=== PATIENT | female | born 1990 | race Caucasian/White ===

== ENCOUNTER 2018-09-29 12:05 | Outpatient (REF) | payer MEDICARE, MEDICAID, SELFPAY ==
--- NOTE | 2018-09-29 11:30 | PAPFT_PTH ---
PATIENT: Olena Perry LOC: [facility] U#:[id number] AGE/SX: 28/F ROOM: RE09/29/[address]: Shital Dixon NP : 1990 BED: DIS: 09/29/2018 SPEC #: [id number] RECD: 09/29/18 17:30 STATUS: [place] REParminder #: [id number] FIDE: 09/29/18 11:[address]: Shital Dixon NP DEPT: [facility] Cytology RECD BY: Kavya Ramirez ENTERED: 09/29/18 17:30 SP TYPE: PAPFT OTHR DR: Domitila Dorado MD, DC Tissues: 1 - CX/ENDOCX FOR PAP SMEARS Procedures: PAP THIN PREP/UVM Screening Comments: [id number] (CHLAMYDIA/GC)
[2018-10-01 12:55] LABS: Chlamydia Result Negative; GC Result Negative; Specimen Description SEE COMMENTS
== END 2018-09-29 12:25 ==
LOC: LBN 12:05
PROVIDERS: PCP Family Medicine; Visit Provider Nurse Practitioner Women's Health
DX: Z11.3 Encounter for screening for infections with a predominantly sexual mode of transmission (principal); Z12.4 Encounter for screening for malignant neoplasm of cervix; Z11.51 Encounter for screening for human papillomavirus (HPV)
CPT/HCPCS: 87491; 87591; 88142

== ENCOUNTER 2018-10-15 15:44 | Outpatient (REF) | payer MEDICARE, MEDICAID, SELFPAY ==
--- NOTE | 2018-10-15 15:30 | CER_PTH ---
PATIENT: Olena Perry LOC: [facility] U#:[id number] AGE/SX: 28/F ROOM: RE10/15/[address]: Gabino Ventura MD : 1990 BED: DIS: 10/15/2018 SPEC #: [id number] RECD: 10/15/18 16:55 STATUS: [place] BUCIO #: [id number] FIDE: 10/15/18 15:[address]: Gabino Ventura DEPT: Surgical Specimen RECD BY: Kavya Ramirez ENTERED: 10/15/18 16:56 SP TYPE: CER OTHR DR: Domitila Dorado MD, DC Tissues: 1 - CERVICAL BIOPSY 2 - CERVICAL BIOPSY 3 - ENDOCERVICAL BX/CURRETTE Procedures: GROSS AND MICRO LEVEL 4 Comments: [id number]
== END 2018-10-15 16:04 ==
LOC: LBN 15:44
PROVIDERS: PCP Family Medicine; Visit Provider Obstetrics & Gynecology
DX: N87.0 Mild cervical dysplasia (principal); Z87.410 Personal history of cervical dysplasia
CPT/HCPCS: 88305

== ENCOUNTER 2018-12-03 13:30 | Outpatient (REF) | payer MEDICARE, MEDICAID, SELFPAY | END 2018-12-03 13:50 | LOC: LBN 13:30 | PROVIDERS: PCP Nurse Practitioner Family; Visit Provider Nurse Practitioner Family | DX: J02.9 Acute pharyngitis, unspecified (principal) | CPT/HCPCS: 87070 ==

== ENCOUNTER 2018-12-18 16:30 | Emergency (ER) | payer MEDICARE, MEDICAID, SELFPAY ==
--- NOTE | 2018-12-18 16:35 | DI.RAD_ITS ---
SYMPTOM/DIAGNOSIS: DISTAL PARTIAL AMPUTATION RIGHT MIDDLE FINGER: Three views. No acute fracture or dislocation is seen. No radiopaque foreign bodies are seen in the soft tissues. There is soft tissue swelling seen of the right middle finger. IMPRESSION: No acute fracture or dislocation.
--- NOTE | 2018-12-18 16:36 | W.ED.GENAD ---
Discharge Plan Disposition Patient Disposition: HOME Condition: Improving Discharge Details Chief Complaint: Orthopedic Clinical Impression: Laceration of right middle finger Primary Care Provider: Isabel Carrillo ED Provider: Xu Sanders Home Meds and New Rx's Prescriptions: New cephalexin 500 mg capsule 500 mg PO TID 5 Days Qty: 15 RF: 0 Continued triamcinolone acetonide 0.1 % cream 1 applic TP BID Qty: 80 RF: 0 benzonatate 100 mg capsule 100 - 200 mg PO TID PRN (Reason: cough) Qty: 60 RF: 0 Nexplanon 68 MG implant 68 mg SQ ONCE Qty: 1 RF: 0 ibuprofen 800 MG tablet 800 mg PO BID MDD 2 PRNQty: 60 RF: 0 amoxicillin 500 mg capsule 2,000 mg PO ONCE Qty: 4 RF: 0 Discharge Instructions Instructions: Finger Laceration (ED) Additional Instructions: We will refer you to orthopedics for follow-up. Please call the office at [phone] for an appointment time. Leave the splint in place until seen by orthopedics. As discussed, you were unable to proceed with suture repair and the wound was closed with Steri-Strips and will heal by secondary intention. Take antibiotics as prescribed. Return for a fever, increasing discomfort, or any other acute concern. Elevate the hand above level of the heart to reduce pain and swelling. Please alternate Tylenol 650 to 975 mg every 6 hours with ibuprofen 800 mg every 8-12 hours as needed for pain Medical Decision Making 28-year-old female presents with right distal long finger partial amputation from a house door which entrapped the finger. It is distal to the proximal nailbed and is from the dorsal side. The volar pad of the finger is intact and the patient does states she can feel to points discriminated at 1 cm. 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 Referred for Xray that does not reveal acute bony injury. Anesthetized with digital block with Marcaine. Quite anxious and given half dose anxiolytic. After irrigation, patient with numb finger. Separately unable to tolerate suture repair due to anxiety, refused additional anesthetic. Discussed with her that we will allow the wound to heal by secondary intention. Steri-Strips were placed and held with glue. Covered in Xeroform, splinted. She may follow-up with orthopedics. Given her cardiac malformation with repair I will place her on 5 days of Keflex. She understands return and follow-up precautions HPI General Mode of arrival: EMS. Date/Time Provider Initiated Documentation: 12/18/18 16:45. Limitations to Documentation: no limitations. Information obtained by: patient. History of Present Illness 28 year old F presents to the emergency department with the chief complaint of Right long finger partial distal amputation. Tetanus 2012., described as moderate, Quality is described as constant, and is localized to the right and upper extremity. Patient reports no radiation. Patient started experiencing this minute(s) and it has been constant. No relieving factors improve symptom(s), No exacerbating factors reported . Patient notes no other symptoms.. Patient did receive the following treatments prior to arrival, splint Related Data Home Medications Medication Instructions Recorded Confirmed Nexplanon 68 mg SQ ONCE #1 implant 11/04/16 12/18/18 ibuprofen 800 mg PO BID PRN #60 tab-cap MDD 2 01/14/18 12/18/18 amoxicillin 500 mg capsule 2,000 mg PO ONCE #4 cap 03/25/18 12/18/18 triamcinolone acetonide 0.1 % 1 applic TP BID #80 gm 06/11/18 12/18/18 topical cream benzonatate 100 mg capsule 100 - 200 mg PO TID PRN #60 cap 12/03/18 12/18/18 cephalexin 500 mg PO TID 5 Days #15 cap 12/18/18 Previous Rx's Medication Instructions Recorded amoxicillin 500 mg capsule 2,000 mg PO ONCE #4 cap 03/25/18 triamcinolone acetonide 0.1 % 1 applic TP BID #80 gm 06/11/18 topical cream benzonatate 100 mg capsule 100 - 200 mg PO TID PRN #60 cap 12/03/18 cephalexin 500 mg PO TID 5 Days #15 cap 12/18/18 Allergies Allergy/AdvReac Type Severity Reaction Status Date / Time No Known Allergies Allergy Verified 12/03/18 09:59 Review of Systems Review of Systems No other injury. [facility] Medical History Abnormal Pap smear of cervix (11/18/16) BV (bacterial vaginosis) Surgical History OPEN HEART SURGERY Family History Mother Bipolar disorder Depression Asthma Father Human immunodeficiency virus (HIV) positive Grandmother Neoplasm Sister No problems noted. Brother No problems noted. Social History Smoking/Tobacco Use Status: Never Alcohol Intake: current Alcohol type: beer Drug use: Never Substance use type: marijuana Details: pt states that she drank three beers today Seatbelt use: sometimes Do you feel safe at home: Yes Female Reproductive History Menstrual control method: implanted Exam Narrative Exam Narrative: GEN: awake, alert, oriented 3. Pleasant, well groomed, interactive. HEAD: Normocephalic, atraumatic ENT: Mucous membranes moist, oropharynx unremarkable, External ear exam unremarkable EYES: PERRL, EOMI NECK: Full ROM, no PIEDAD, no menigismus EXT: Right long finger with distal partial amputation on the dorsal surface with volar pad intact. Patient states she is able to feel two-point discrimination at approximately 1 cm. The proximal nailbed is intact Neuro: Grossly normal neurologic exam, conversant, interactive. Psych: Speech fluent, thoughts congruent, affect anxious
[2018-12-18 16:39] VITALS: BP 124/96; PULSE 111; RESP 18; TEMP 37.4; O2SAT 98
[2018-12-18] MEDS: Ibuprofen 800 MG TAB PO (17:10)
[2018-12-18] MEDS: Cephalexin 500 MG CAP PO (17:10)
--- NOTE | 2018-12-18 17:11 | DI.VRAD_ITS ---
EXAM: XR Right Finger(s) EXAM DATE/TIME: 12/18/2018 4:36 PM CLINICAL HISTORY: 28 years old, female; Other: Distal partial amputation TECHNIQUE: Imaging protocol: XR Right fingers. Views: Minimum 2 views. COMPARISON: CR RIGHT HAND COMPLETE 06/21/2017 4:21 AM FINDINGS: Normal anatomic alignment and bone density. No acute displaced fracture or dislocation. Significant soft tissue swelling about the tip of the middle finger. IMPRESSION: No acute skeletal injury. Dictated and Authenticated by: Ramone Mayes MD. Ordering:OPAL Mcnair MD
[2018-12-18] MEDS: LORazepam 0.5 MG TAB PO (17:25)
[2018-12-18 18:35] VITALS: BP 124/96; PULSE 88; RESP 18; TEMP 37.4; O2SAT 98
--- NOTE | 2018-12-18 19:03 | NUR.NOTE ---
Nursing Note: site bandaged by provider and splinted by provider additional Coban placed by RN application reviewed by provider
== END 2018-12-18 18:33 | disposition home or self-care (01) ==
PROVIDERS: Emergency Provider Emergency Medicine; PCP Nurse Practitioner Family
DX: S68.622A Partial traumatic transphalangeal amputation of right middle finger, initial encounter (principal); W23.0XXA Caught, crushed, jammed, or pinched between moving objects, initial encounter; S67.192A Crushing injury of right middle finger, initial encounter
CPT/HCPCS: 29130; 99283; 73140

== ENCOUNTER → 2018-12-22 09:36 | Outpatient (BNVA) | payer MEDICARE, MEDICAID, SELFPAY | PROVIDERS: PCP Nurse Practitioner Family; Referring Provider Nurse Practitioner Family; Visit Provider Orthopaedic Surgery | DX: S69.91XA Unspecified injury of right wrist, hand and finger(s), initial encounter (principal); W23.0XXA Caught, crushed, jammed, or pinched between moving objects, initial encounter | CPT/HCPCS: 99213 ==

== ENCOUNTER → 2018-12-30 09:54 | Outpatient (BNVA) | payer MEDICARE, MEDICAID, SELFPAY | PROVIDERS: PCP Nurse Practitioner Family; Referring Provider Nurse Practitioner Family; Visit Provider Orthopaedic Surgery | DX: S67.192A Crushing injury of right middle finger, initial encounter (principal); S69.81XA Other specified injuries of right wrist, hand and finger(s), initial encounter; X58.XXXA Exposure to other specified factors, initial encounter | CPT/HCPCS: 99213 ==

== ENCOUNTER 2019-04-25 19:16 | Outpatient (REF) | payer MEDICARE, MEDICAID, SELFPAY ==
[2019-04-27 13:09] LABS: HSV 1 DNA Result Negative (Negative)
[2019-04-27 15:56] LABS: HSV 2 DNA Result Positive (Negative); Varicella Zoster DNA Result Negative (Negative)
== END 2019-04-25 19:36 ==
LOC: LBN 19:16
PROVIDERS: PCP Family Medicine; Visit Provider Internal Medicine
DX: R21 Rash and other nonspecific skin eruption (principal)
CPT/HCPCS: 87252; 87529; 87798; 87070; 87205

== ENCOUNTER 2019-07-29 15:21 | Outpatient (REF) | payer MEDICARE, MEDICAID, SELFPAY ==
--- NOTE | 2019-07-29 11:30 | PAPFT_PTH ---
PATIENT: Olena Perry LOC: [facility] U#:[id number] AGE/SX: 29/F ROOM: RE07/29/[address]: Gabino Ventura MD : 1990 BED: DIS: 07/29/2019 SPEC #: [id number] RECD: 07/29/19 17:52 STATUS: [place] REParminder #: [id number] FIDE: 07/29/19 11:[address]: Gabino Ventura DEPT: [facility] Cytology RECD BY: Kavya Ramirez ENTERED: 07/29/19 17:52 SP TYPE: PAPFT OTHR DR: Domitila Dorado MD, DC Tissues: 1 - CX/ENDOCX FOR PAP SMEARS Procedures: PAP THIN PREP/[facility] Screening Comments: [id number] (CHLAMYDIA/GC)
[2019-08-01 15:48] LABS: GC Result Negative (Negative)
[2019-08-03 10:01] LABS: Chlamydia Result Positive (Negative)
== END 2019-07-29 15:41 ==
LOC: LBN 15:21
PROVIDERS: PCP Family Medicine; Visit Provider Obstetrics & Gynecology
DX: N89.8 Other specified noninflammatory disorders of vagina (principal); Z11.3 Encounter for screening for infections with a predominantly sexual mode of transmission; Z12.4 Encounter for screening for malignant neoplasm of cervix; Z11.51 Encounter for screening for human papillomavirus (HPV)
CPT/HCPCS: 87491; 87591; 88142; 87480; 87510; 87660

== ENCOUNTER 2019-08-04 02:35 | Outpatient (CLI) | payer MEDICARE, MEDICAID, SELFPAY ==
[2019-08-04 15:54] LABS: Calculated LDL 49 mg/dL (<100); Cholesterol 132 mg/dL (<200); HDL Cholesterol 52 mg/dL (40-60); Triglyceride 158 mg/dL (<150)
[2019-08-05 11:33] LABS: HIV-1/2 Ag & Ab Screen Negative (Negative)
[2019-08-05 14:02] LABS: Syphilis Serology (RPR) Negative (Negative)
[2019-08-05 15:46] LABS: Chlamydia Result Positive (Negative)
[2019-08-08 10:00] LABS: GC Result Negative (Negative)
== END 2019-08-04 02:55 ==
PROVIDERS: PCP Family Medicine; Visit Provider Family Medicine
DX: Z13.6 Encounter for screening for cardiovascular disorders (principal); Z11.3 Encounter for screening for infections with a predominantly sexual mode of transmission
CPT/HCPCS: 36415; 80061; 87389; 87491; 87591; 86592

== ENCOUNTER 2019-08-26 12:42 | Outpatient (REF) | payer MEDICARE, MEDICAID, SELFPAY ==
[2019-08-29 12:48] LABS: GC Result Negative (Negative)
[2019-08-29 13:30] LABS: Chlamydia Result Positive (Negative)
== END 2019-08-26 13:02 ==
LOC: LBN 12:42
PROVIDERS: PCP Family Medicine; Visit Provider Nurse Practitioner Family
DX: Z11.3 Encounter for screening for infections with a predominantly sexual mode of transmission (principal)
CPT/HCPCS: 87491; 87591

== ENCOUNTER 2019-10-10 19:18 | Outpatient (REF) | payer MEDICARE, MEDICAID, SELFPAY ==
[2019-10-12 14:26] LABS: Chlamydia Result Negative (Negative); GC Result Negative (Negative)
== END 2019-10-10 19:38 ==
LOC: LBN 19:18
PROVIDERS: PCP Family Medicine; Visit Provider Nurse Practitioner Family
DX: Z11.3 Encounter for screening for infections with a predominantly sexual mode of transmission (principal)
CPT/HCPCS: 87491; 87591

== ENCOUNTER 2019-11-10 17:37 | Outpatient (REF) | payer MEDICARE, MEDICAID, SELFPAY ==
[2019-11-11 14:08] LABS: HSV 1 DNA Result Negative (Negative); HSV 2 DNA Result Positive (Negative)
== END 2019-11-10 17:57 ==
LOC: LBN 17:37
PROVIDERS: PCP Family Medicine; Visit Provider Obstetrics & Gynecology
DX: Z11.59 Encounter for screening for other viral diseases (principal); N90.89 Other specified noninflammatory disorders of vulva and perineum
CPT/HCPCS: 87529

== ENCOUNTER 2019-12-04 09:34 | Emergency (ER) | payer MEDICARE, MEDICAID, SELFPAY ==
[2019-12-04] VITALS (44 sets, daily range): BP systolic 95–155; BP diastolic 53–97; PULSE 58–112; RESP 12–25; TEMP 36.9–37.2; O2SAT 95–100
--- NOTE | 2019-12-04 09:28 | ED.GENADUL_ITS ---
Discharge Plan Disposition Patient Disposition: HOME Condition: Stable Discharge Details Chief Complaint: Seizure Clinical Impression: Seizure, Accidental medication overdose Primary Care Provider: Domitila Dorado ED Provider: Becca Talavera Home Meds and New Rx's Prescriptions: New levetiracetam [Keppra] 500 mg tablet 500 mg PO BID Qty: 14 RF: 0 levetiracetam [Keppra] 750 mg tablet 750 mg PO BID Qty: 60 RF: 0 Continued Nexplanon 68 mg implant 1 implant SBD ONCE RF: 0 ibuprofen 600 mg tablet 600 mg PO BID MDD 2 PRN (Reason: fever or pain) Qty: 30 RF: 0 Discharge Instructions Instructions: Recurrent Seizures in Adults (ED) Additional Instructions: Drink plenty of fluids and get plenty of rest. Do not take any additional Tessalon Perles today. Avoid any additional [id number] medications, marijuana or alcohol until f ollow-up with neurology. Start Keppra at 500 mg twice daily for 1 week then start taking Keppra 750 mg twice daily. You should receive a call from [facility] neurology clinic regarding follow-up. If you do not hear from them by next week, call the neurology clinic at [facility] at [phone]. 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 History of reported infantile spasms at 8 months of age. She states she took 1 dose of a cough medication this morning. Per discussion with [facility] pharmacy, patient was prescribed Tessalon Perles 1 year ago but no other cough medication. Review of Tessalon Perles does not note an adverse reaction of seizures. Heart rate 110s, blood pressure mildly hypertensive, patient is awake and alert and appears nontoxic. She has a left-sided tongue contusion but no other evidence of trauma or focal deficits. EKG notes a rate of 98, sinus, incomplete right bundle branch block but no acute ST ischemic changes. 1045 -- d/w [facility] neurology -it is possible the patient could be developing epilepsy as a of infantile spasms is a risk for epilepsy in adulthood. Agrees with dose of 1 g of Keppra here and to start Keppra p.o., 500 mg twice daily for 1 week then 750 twice daily. Of [facility] cardiology considering patient's extensive cardiac history -does not feel that her history of cardiac surgery or seizures have any relation to each other or vice versa at this time. No other acute recommendations. Labs and imaging reviewed. White blood cell count 21, which I suspect is a stress response. Troponin negative. Urinalysis appears contaminated. UDS notes THC. CT head and chest x-ray negative. 1230 --patient reassessed -she is now states she thinks that she accidentally took half a bottle of Tessalon Perles are not 1 tab. When questioned specifically on this, she states she thinks approximately 6 tabs. She states she felt a little sleepy this morning when she did this, and this was done accidentally and not purposely an attempt to harm herself. Discussed with poison control -patient took approximately 600 mg or even possibly up to 1000, no significant acute side effects other than GI. In large overdoses, there is concern for arrhythmia or hypotension, but not in the case of patient smaller ingestion. Recommends me 4 to 6-hour observation period from time of ingestion. This was again discussed with [facility] neurology and cardiology and they had no other additional recommendations. 1400 --[facility] evaluated patient at bedside through [facility]. Appears that the ingestion of Tessalon Perles was accidental and does not feel that there was any intent to harm herself. Mehrdad from [facility] will follow up with patient's rn case manager hospice. 1430 -- pt asymptomatic and requesting to go home. She states she feels much better. She was able to ambulate and eat here. Advised to follow up with the primary care doctor for re-evaluation. Usual and customary return precautions given prior to discharge. Medical Records Medical records reviewed: Yes I reviewed the patient's medical records. Imaging Data Radiologic Study: Radiologist's impression: CT HEAD WO CLINICAL HISTORY: hit L side of head, s/p seizure. TECHNIQUE: Imaging Protocol: Axial computed tomography images with coronal and sagittal reformatted images were created and reviewed COMPARISON: No exams were available for comparison FINDINGS: The ventricular system is normal in appearance. No evidence of acute intracranial hemorrhage, mass effect, or midline shift. The orbital structures are unremarkable. The temporal bone structures appear intact. Calvarium: Normal. Visualized Paranasal sinuses/Mastoids: Clear. IMPRESSION: Normal cranial CT. XR CHEST 2V PA LATERAL CLINICAL HISTORY: s/p seizure, r/o acute disease TECHNIQUE: COMPARISON: CR CHEST 2 VIEWS PA,LAT from 05/28/2016 FINDINGS: The heart is enlarged. Prior cardiac surgery noted. Prominence of central pulmonary vessels noted, unchanged from chest film of May 2016. The lungs are clear. No pleural effusion seen. IMPRESSION: No evidence of acute process. Lab Data Lab results reviewed: Yes I reviewed the patient's lab results. Labs: Laboratory Tests Range/Units 12/04/19 12/04/19 12/04/19 09:44 09:44 09:44 WBC (4.4-10.8) k/cumm 21.24 H RBC (4.00-5.20) m/cumm 4.82 Hgb (12.0-15.5) g/dL 14.6 Hct (36.0-46.0) % 43.4 MCV (80-95) fL 90.0 MCH (27.0-33.0) pg 30.3 MCHC (32.0-36.0) g/dL 33.6 RDW (11.7-14.6) % 13.2 Plt Count (130-400) x1000/uL 300 MPV (8.0-11.0) fL 10.2 Immature Gran % % 0.3 Neutrophils % 83.7 Lymphocytes % 6.5 Monocytes % 8.8 Eosinophils % 0.5 Basophils % 0.2 Absolute Neutrophils (1.2-6.7) k/cumm 17.78 H Absolute Lymphocytes (1.2-3.4) k/cumm 1.38 Absolute Monocytes (0.11-0.7) k/cumm 1.87 H Absolute Eosinophils (0.0-0.7) k/cumm 0.11 Absolute Basophils (0.0-0.2) k/cumm 0.04 Differential Comment Agrees w/ instrument RBC Morphology Normal PT (9.3-11.0) sec INR (0.9-1.1) APTT (21.0-31.4) sec Sodium (136-145) mmol/L 139 Potassium (3.5-5.1) mmol/L 3.8 Chloride (98-107) mmol/L 104 Carbon Dioxide (21.0-32.0) mmol/L 23.7 Anion Gap (3-11) mmol/L 11.3 H BUN (7-18) mg/dL 13 Creatinine (0.55-1.02) mg/dL 1.03 H Estimated GFR/1.73 m2 (mL/min/1.73m2) >= 60.00 Glucose (74-106) mg/dL 97 Lactate (0.6-1.4) mmol/L Calcium (8.5-10.1) mg/dL 8.9 Magnesium (1.8-2.4) mg/dL 1.8 Total Bilirubin (0.2-1.0) mg/dL 1.7 H AST (15-37) U/L 20 ALT (14-59) U/L 22 Alkaline Phosphatase (46-116) U/L 88 Troponin I (<0.06) ng/mL < 0.05 Total Protein (6.4-8.2) g/dL 7.7 Albumin (3.4-5.0) g/dL 4.0 Urine Color (Yellow) Urine Clarity (Clear) Urine pH (5-8) Ur Specific [place] (1.005-1.025) Urine Protein (Negative) mg/dL Urine Ketones (Negative) mg/dL Urine Blood (Negative) Urine Nitrite (Negative) Urine Bilirubin (Negative) Urine Urobilinogen (Up TO 0.2) EU/dL Ur Leukocyte Esterase (Negative) Urine RBC (0-2) HPF Urine WBC (0-5) HPF Ur Epithelial Cells (Negative) HPF Urine Crystals (Negative) HPF Urine Bacteria (Negative) HPF Urine Casts (Negative) LPF Urine Mucus (Negative) Urine Other (Negative) Ur Culture Indicated? Urine Glucose (Negative) mg/dL Salicylates (2.8-20.0) mg/dL < 2.8 Urine Opiates Screen (Negative) Urine Methadone Screen (Negative) Acetaminophen (10-30) ug/mL < 2 Ur Barbiturates Screen (Negative) Ur Tricyclics Screen (Negative) Ur Amphetamines Screen (Negative) U Benzodiazepines Scrn (Negative) Urine Cocaine Screen (Negative) Ur THC Screen (Negative) Ethyl Alcohol (<3) mg/dL < 3.0 Range/Units 12/04/19 12/04/19 12/04/19 09:44 10:05 10:05 WBC (4.4-10.8) k/cumm RBC (4.00-5.20) m/cumm Hgb (12.0-15.5) g/dL Hct (36.0-46.0) % MCV (80-95) fL MCH (27.0-33.0) pg MCHC (32.0-36.0) g/dL RDW (11.7-14.6) % Plt Count (130-400) x1000/uL MPV (8.0-11.0) fL Immature Gran % % Neutrophils % Lymphocytes % Monocytes % Eosinophils % Basophils % Absolute Neutrophils (1.2-6.7) k/cumm Absolute Lymphocytes (1.2-3.4) k/cumm Absolute Monocytes (0.11-0.7) k/cumm Absolute Eosinophils (0.0-0.7) k/cumm Absolute Basophils (0.0-0.2) k/cumm Differential Comment RBC Morphology PT (9.3-11.0) sec 11.2 H INR (0.9-1.1) 1.1 APTT (21.0-31.4) sec 24.3 Sodium (136-145) mmol/L Potassium (3.5-5.1) mmol/L Chloride (98-107) mmol/L Carbon Dioxide (21.0-32.0) mmol/L Anion Gap (3-11) mmol/L BUN (7-18) mg/dL Creatinine (0.55-1.02) mg/dL Estimated GFR/1.73 m2 (mL/min/1.73m2) Glucose (74-106) mg/dL Lactate (0.6-1.4) mmol/L Calcium (8.5-10.1) mg/dL Magnesium (1.8-2.4) mg/dL Total Bilirubin (0.2-1.0) mg/dL AST (15-37) U/L ALT (14-59) U/L Alkaline Phosphatase (46-116) U/L Troponin I (<0.06) ng/mL Total Protein (6.4-8.2) g/dL Albumin (3.4-5.0) g/dL Urine Color (Yellow) Yellow Urine Clarity (Clear) Clear Urine pH (5-8) 5.5 Ur Specific [place] (1.005-1.025) >= 1.030 H Urine Protein (Negative) mg/dL 100 H Urine Ketones (Negative) mg/dL Negative Urine Blood (Negative) Negative Urine Nitrite (Negative) Negative Urine Bilirubin (Negative) Negative Urine Urobilinogen (Up TO 0.2) EU/dL 0.2 Ur Leukocyte Esterase (Negative) Trace H Urine RBC (0-2) HPF 3-5 H Urine WBC (0-5) HPF 5-10 Ur Epithelial Cells (Negative) HPF Moderate Urine Crystals (Negative) HPF Negative Urine Bacteria (Negative) HPF Many Urine Casts (Negative) LPF Negative Urine Mucus (Negative) Moderate Urine Other (Negative) Negative Ur Culture Indicated? No/sq. contamination Urine Glucose (Negative) mg/dL Negative Salicylates (2.8-20.0) mg/dL Urine Opiates Screen (Negative) Negative Urine Methadone Screen (Negative) Negative Acetaminophen (10-30) ug/mL Ur Barbiturates Screen (Negative) Negative Ur Tricyclics Screen (Negative) Negative Ur Amphetamines Screen (Negative) Negative U Benzodiazepines Scrn (Negative) Negative Urine Cocaine Screen (Negative) Negative Ur THC Screen (Negative) Positive A Ethyl Alcohol (<3) mg/dL Range/Units 12/04/19 11:05 WBC (4.4-10.8) k/cumm RBC (4.00-5.20) m/cumm Hgb (12.0-15.5) g/dL Hct (36.0-46.0) % MCV (80-95) fL MCH (27.0-33.0) pg MCHC (32.0-36.0) g/dL RDW (11.7-14.6) % Plt Count (130-400) x1000/uL MPV (8.0-11.0) fL Immature Gran % % Neutrophils % Lymphocytes % Monocytes % Eosinophils % Basophils % Absolute Neutrophils (1.2-6.7) k/cumm Absolute Lymphocytes (1.2-3.4) k/cumm Absolute Monocytes (0.11-0.7) k/cumm Absolute Eosinophils (0.0-0.7) k/cumm Absolute Basophils (0.0-0.2) k/cumm Differential Comment RBC Morphology PT (9.3-11.0) sec INR (0.9-1.1) APTT (21.0-31.4) sec Sodium (136-145) mmol/L Potassium (3.5-5.1) mmol/L Chloride (98-107) mmol/L Carbon Dioxide (21.0-32.0) mmol/L Anion Gap (3-11) mmol/L BUN (7-18) mg/dL Creatinine (0.55-1.02) mg/dL Estimated GFR/1.73 m2 (mL/min/1.73m2) Glucose (74-106) mg/dL Lactate (0.6-1.4) mmol/L 1.1 Calcium (8.5-10.1) mg/dL Magnesium (1.8-2.4) mg/dL Total Bilirubin (0.2-1.0) mg/dL AST (15-37) U/L ALT (14-59) U/L Alkaline Phosphatase (46-116) U/L Troponin I (<0.06) ng/mL Total Protein (6.4-8.2) g/dL Albumin (3.4-5.0) g/dL Urine Color (Yellow) Urine Clarity (Clear) Urine pH (5-8) Ur Specific [place] (1.005-1.025) Urine Protein (Negative) mg/dL Urine Ketones (Negative) mg/dL Urine Blood (Negative) Urine Nitrite (Negative) Urine Bilirubin (Negative) Urine Urobilinogen (Up TO 0.2) EU/dL Ur Leukocyte Esterase (Negative) Urine RBC (0-2) HPF Urine WBC (0-5) HPF Ur Epithelial Cells (Negative) HPF Urine Crystals (Negative) HPF Urine Bacteria (Negative) HPF Urine Casts (Negative) LPF Urine Mucus (Negative) Urine Other (Negative) Ur Culture Indicated? Urine Glucose (Negative) mg/dL Salicylates (2.8-20.0) mg/dL Urine Opiates Screen (Negative) Urine Methadone Screen (Negative) Acetaminophen (10-30) ug/mL Ur Barbiturates Screen (Negative) Ur Tricyclics Screen (Negative) Ur Amphetamines Screen (Negative) U Benzodiazepines Scrn (Negative) Urine Cocaine Screen (Negative) Ur THC Screen (Negative) Ethyl Alcohol (<3) mg/dL ECG Data Attestation: I personally reviewed and interpreted this ECG (s) as follows: Interpretation: rate of 98, sinus, no acute ST elevation or depression, VA 166, QRS 116, QTc 447. HPI General Mode of arrival: ambulatory . Date/Time Provider Initiated Documentation: 12/04/19 09:43 . Limitations to Documentation: no limitations . Information obtained by: patient . HPI Narrative: Patient is a 29-year-old female with a history of tetralogy of fallot, with history of trans-annular patch surgical repair 3 months as well as pulmonary regurgitation with history of bioprosthetic pulmonary valve in 2016 presents status post seizure. Patient states she had been feeling well until the seizure today. She does not recall the seizure. She last remembers getting up from the floor and walking to the bathroom and vomiting 4 times which she states was mainly food. She does admit to headache. She also admits to a mild cough which is nonproductive recently for which she took 1 dose of Tessalon Perles today. She states she has taken this a few times previously in the past. She denies an recent fever, dizziness, chest pain, shortness of breath, abdominal pain, urinary symptoms, diarrhea, recent injury. She states she has been sleeping and eating well. She denies any recent alcohol or drug use. Case discussed with the boyfriend over the phone who witnessed seizure. He states that patient was sitting in a chair today when he noticed her shaking and he laid her to the ground on her side. He states she had full body jerking which lasts approximately 2 minutes. He states she was able to get up and walk to the bathroom after the seizure. He also states that she complained to him that she did not feel right yesterday. He also states that she smoked marijuana yesterday. Denies any other alcohol or drug use. He states she appeared to be acting normally today prior to seizure. Also discussed with mom over the phone and she states that patient has a history of infantile spasms at 8 months of age for which she initiated injectable medications for 18 months but no seizure medication or history of seizures since then. Related Data Home Medications Medication Instructions Recorded Confirmed ibuprofen 600 mg tablet 600 mg PO BID PRN #30 tab-cap MDD 2 10/10/19 12/04/19 etonogestrel 68 mg subdermal 1 implant SBD ONCE 11/10/19 12/04/19 implant levetiracetam [Keppra] 500 mg PO BID #14 tab 12/04/19 levetiracetam [Keppra] 750 mg PO BID #60 tab 12/04/19 Previous Rx's Medication Instructions Recorded ibuprofen 600 mg tablet 600 mg PO BID PRN #30 tab-cap MDD 2 10/10/19 levetiracetam [Keppra] 500 mg PO BID #14 tab 12/04/19 levetiracetam [Keppra] 750 mg PO BID #60 tab 12/04/19 Allergies Allergy/AdvReac Type Severity Reaction Status Date / Time No Known Allergies Allergy Verified 12/04/19 09:41 General BULMARO: 3 Review of Systems All systems reviewed & are unremarkable except as noted in HPI and below Constitutional Constitutional: Reports as per HPI, Denies chills and Denies fever(s) Eyes Eyes: Denies blurry vision ENT Ears, Nose, Mouth, and Throat: Denies dizziness, Denies sore throat and Denies throat swelling Cardiovascular Cardiovascular: Denies chest pain and Denies dyspnea Respiratory Respiratory: Denies cough and Denies dyspnea Gastrointestinal Gastrointestinal: Denies abdominal pain, Denies diarrhea and Denies vomiting Genitourinary Genitourinary: Denies hematuria and Denies dysuria Musculoskeletal Musculoskeletal: Denies back pain and Denies numbness Integumentary/Breasts Skin/Breast: Denies lesions and Denies rash Neurologic Neurologic: Denies dizziness, Denies localized weakness, Denies numbness and Reports seizure-like activity Allergic/Immunologic Allergic/Immunologic: Denies throat swelling [facility] Social History (Updated 07/25/19 @ 11:10 by Richard Marquez) Smoking/Tobacco Use Status: Never Alcohol Intake: current Alcohol Intake frequency: holidays/special occasions only Drug use: Never Caregiver/Support person: No Household members: none Housing: apartment Communication Needs: None Pets and animals: No Sexually active: Yes Do you think of yourself as: straight/heterosexual Current gender identity: female What is your relationship status?: never How often do you talk on the phone with friends or family?: three or more times per week How often do you get together with friends or relatives?: three or more times per week How often do you attend protestant or scientologist services?: 4 or more times per year Do you belong to any clubs or organized social groups?: no Panel score (0-1 are the most socially isolated patients): 2 What type of physical activity do you participate in: walking Duration: 15-30 minutes/day Frequency: 3-4 times per week Meseret/Temple: [employer] meseret needs: No Seatbelt use: sometimes Helmet use: No Drive intox or ride w/intox dinkey driver: No Do you feel safe at home: Yes Do you feel safe in your relationship?: Yes Female Reproductive History Menstrual control method: implanted Exam Const General: cooperative, healthy appearing and no acute distress HENMT Head: normal to inspection, no palpable skull fracture, normocephalic and atraumatic Ears: hearing grossly normal bilaterally and external ears normal Face and sinus: normal facial exam Mouth: oral mucosae normal Eyes General: appearance normal, both eyes and all related structures Pupils: PERRL EOM: EOM intact bilaterally Neck Neck: normal visual inspection and No submandibular swelling Lymphatic: no lymphadenopathy noted Chest Chest: normal inspection of the chest and no tenderness Resp Effort & Inspection: normal respiratory effort and able to speak in complete sentences Auscultation: clear to auscultation bilaterally Cardio Rate: regular rate Rhythm: regular rhythm GI Inspection: normal to inspection Palpation: soft, not firm, not rigid and nontender Auscultation: normal bowel sounds Back/Spine/Pelvis Cervical Spine: No cervical spinal tenderness Thoracic/Lumbar Spine: thoracic and lumbar spine normal to inspection, No thoracic spinal tenderness and No lumbar spinal tenderness Pelvis: no pain with anterior-posterior compression Skin General skin exam: no rashes or lesions noted Neuro General: patient alert, patient awake and patient oriented x3 Cranial Nerves: CN's II-XI intact bilaterally Cognition: normal cognition Speech: speech normal Motor: muscle tone normal throughout and strength 5/5 throughout Sensory Exam: no sensory deficits noted Extrem General: normal to inspection, full ROM, capillary refill normal, no calf tenderness bilaterally and no edema Other: no evidence of trauma Psych Appearance: grossly normal Mental Status: mental status grossly normal Speech and Movement: speech and movement normal Affect: normal affect
--- NOTE | 2019-12-04 09:30 | RT.EKG_ITS ---
APPROVED REPORT Exam: Resting ECG Patient Location: E HR:98 bpm ECG Measurements Heart Rate 98 AXIS OH 166 P 37 QRSd 116 QRS 115 QT 350 T -3 QTc 447 <Conclusion> Sinus rhythm...normal P axis, V-rate 60- 99 Incomplete right bundle branch block...QRSd >112, terminal axis(90,270) Borderline ST elevation, lateral leads...ST >0.06mV, I aVL V5 V6. ED interpretation: Does not appear c/w ST elevation. No evidence of ST depression.
[2019-12-04 09:53] LABS: Abs Immature Grans 0.06 k/cumm (0.0-0.09); Absolute Basophil Count 0.04 k/cumm (0.0-0.2); Absolute Eosinophil Count 0.11 k/cumm (0.0-0.7); Absolute Lymphocyte Count 1.38 k/cumm (1.2-3.4); Basophils % 0.2; Eosinophils % 0.5; HCT 43.4 % (36.0-46.0); HGB 14.6 g/dL (12.0-15.5); Immature Grans % 0.3 %; Lymphocytes % 6.5; Mean Corp. HGB Concentration 33.6 g/dL (32.0-36.0); Mean Corpuscular Hemoglobin 30.3 pg (27.0-33.0); Mean Platelet Volume 10.2 fL (8.0-11.0); Monocytes % 8.8; Neutrophils % 83.7; Platelet Count 300 x1000/uL (130-400); RBC 4.82 m/cumm (4.00-5.20); RBC Distribution Width 13.2 % (11.7-14.6); White Blood Cell Count 21.24 k/cumm (4.4-10.8)
--- NOTE | 2019-12-04 10:00 | DI.CT_ITS ---
EXAM: CT HEAD WO CLINICAL HISTORY: hit L side of head, s/p seizure. TECHNIQUE: Imaging Protocol: Axial computed tomography images with coronal and sagittal reformatted images were created and reviewed COMPARISON: No exams were available for comparison FINDINGS: The ventricular system is normal in appearance. No evidence of acute intracranial hemorrhage, mass effect, or midline shift. The orbital structures are unremarkable. The temporal bone structures appear intact. Calvarium: Normal. Visualized Paranasal sinuses/Mastoids: Clear. IMPRESSION: Normal cranial CT. RADIATION DOSE DELIVERED: Total DLP DATA REPOSITORY: All CT scans at this facility are submitted to the National Radiology Data Registry (NRDR) Dose Index Registry (DIR) with the [employer] (A[employer]). RADIATION OPTIMIZATION: All CT scans at this facility use at least one of these dose optimization te chniques: automated exposure control; mA and/or kV adjustment per patient size (includes targeted exa ms where dose is matched to clinical indication); or iterative reconstruction.
[2019-12-04 10:01] LABS: Absolute Monocyte Count 1.87 k/cumm (0.11-0.7); Absolute Neutrophil Count 17.78 k/cumm (1.2-6.7)
--- NOTE | 2019-12-04 10:02 | DI.RAD_ITS ---
EXAM: XR CHEST 2V PA LATERAL CLINICAL HISTORY: s/p seizure, r/o acute disease TECHNIQUE: COMPARISON: CR CHEST 2 VIEWS PA,LAT from 05/28/2016 FINDINGS: The heart is enlarged. Prior cardiac surgery noted. Prominence of central pulmonary vessels noted, unchanged from chest film of May 2016. The lungs are clear. No pleural effusion seen. IMPRESSION: No evidence of acute process.
[2019-12-04 10:04] LABS: INR 1.1 (0.9-1.1); PTT Activated 24.3 sec (21.0-31.4); Prothrombin Time 11.2 sec (9.3-11.0)
[2019-12-04 10:07] LABS: ALT 22 U/L (14-59); AST 20 U/L (15-37); Alkaline Phosphatase 88 U/L (46-116); Anion Gap 11.3 mmol/L (3-11); BUN 13 mg/dL (7-18); Bilirubin, Total 1.7 mg/dL (0.2-1.0); CO2 23.7 mmol/L (21.0-32.0); CREATININE 1.03 mg/dL (0.55-1.02); Calcium 8.9 mg/dL (8.5-10.1); Chloride 104 mmol/L (98-107); Glucose 97 mg/dL (74-106); Magnesium 1.8 mg/dL (1.8-2.4); Potassium 3.8 mmol/L (3.5-5.1); Sodium 139 mmol/L (136-145); Total Protein 7.7 g/dL (6.4-8.2); Troponin I < 0.05 ng/mL (<0.06)
[2019-12-04 10:15] LABS: Diff Comment Agrees w/ Instrument; RBC Morphology Normal
[2019-12-04] MEDS: Normal Saline 1,000 ML 1000 ML IV ×2 (10:15→13:13)
[2019-12-04] MEDS: levETIRAcetam 1,000 MG in Normal Saline 100 ML 400 MG IVPB (10:15)
[2019-12-04 10:18] LABS: Bilirubin Negative (Negative); Blood Negative (Negative); Clarity Clear (Clear); Glucose Negative (Negative); Ketones Negative (Negative); Leukocyte Esterase Trace (Negative); Nitrite Negative (Negative); Specific Gravity >= 1.030 (1.005-1.025); Urobilinogen 0.2 EU/dL (Up TO 0.2); pH 5.5 (5-8)
[2019-12-04 10:18] LABS: ETHANOL BLOOD < 3.0 mg/dL (<3)
[2019-12-04 10:28] LABS: *AMPHETAMINES SCREEN URINE Negative (Negative); *BARBITURATES SCREEN URINE Negative (Negative); *BENZODIAZEPINES SCREEN URINE Negative (Negative); Cannabinoids THC POSITIVE (Negative); Cocaine Screen,Urine Negative (Negative); METHADONE URINE SCREEN Negative (Negative); OPIATES URINE SCREEN Negative (Negative); Tricyclic Antidepressants Negative (Negative)
[2019-12-04 10:31] LABS: Bacteria Many HPF (Negative); Crystals Negative HPF (Negative); Epithelial Cells Moderate HPF (Negative); Mucus Moderate (Negative); Other Cells Negative (Negative)
[2019-12-04 10:32] LABS: C & S Indicated? No/Sq. Contamination; Casts Negative LPF (Negative)
[2019-12-04 10:43] LABS: Acetaminophen < 2 ug/mL (10-30); Salicylate < 2.8 mg/dL (2.8-20.0)
--- NOTE | 2019-12-04 10:53 | DI.VRAD_ITS ---
PROCEDURE INFORMATION: Exam: CT Head Without Contrast Exam date and time: 12/04/2019 10:03 AM Age: 29 years old Clinical indication: Other: Seizure, hit L side of head TECHNIQUE: Imaging protocol: Computed tomography of the head without contrast. COMPARISON: No relevant prior studies available. FINDINGS: Brain: Normal. No hemorrhage. Unremarkable white matter. No mass effect. Ventricles: Normal. No ventriculomegaly. Bones/joints: Unremarkable. No acute fracture. Sinuses: Visualized sinuses are unremarkable. No fluid levels. Mastoid air cells: Visualized mastoid air cells are well aerated. Soft tissues: Unremarkable. IMPRESSION: No acute intracranial abnormality. Dictated and Authenticated by: Ewa Gallardo MD. Ordering:YADY Hudson MD
--- NOTE | 2019-12-04 11:01 | DI.VRAD_ITS ---
PROCEDURE INFORMATION: Exam: XR Chest, 2 Views Exam date and time: 12/04/2019 10:48 AM Age: 29 years old Clinical indication: Other: Seizure TECHNIQUE: Imaging protocol: XR of the chest Views: 2 views. COMPARISON: CR CHEST 2 VIEWS PA,LAT 05/28/2016 11:41 AM FINDINGS: Lungs: Unremarkable. No consolidation. Pleural space: Unremarkable. No pleural effusion. No pneumothorax. Heart/Mediastinum: Cardiomegaly. Stable mediastinal clips. Bones/joints: Unremarkable. IMPRESSION: 1. Cardiomegaly. 2. No focal consolidation. Dictated and Authenticated by: Ewa Gallardo MD. Ordering:YADY Hudson MD
[2019-12-04 11:09] LABS: Lactate 1.1 mmol/L (0.6-1.4)
[2019-12-04] MEDS: ACETAMINOPHEN 1,000 MG/100 ML BTL 400 MG IVPB (11:19)
== END 2019-12-04 14:50 | disposition home or self-care (01) ==
PROVIDERS: Emergency Provider Physician Assistant; PCP Family Medicine
DX: T48.3X1A Poisoning by antitussives, accidental (unintentional), initial encounter (principal); R56.9 Unspecified convulsions; R11.2 Nausea with vomiting, unspecified
CPT/HCPCS: 36415; 80053; 80307; 81025; 93005; 96361; 96365; 96367; 99285; 70450; 71046; 80320; 80329; 81003; 81015; 83605; 83735; 84484; 85025; 85610; 85730; 93010; J0131; J1953

== ENCOUNTER 2020-02-13 01:36 | Outpatient (CLI) | payer MEDICARE, MEDICAID, SELFPAY ==
[2020-02-14 13:00] LABS: COVID-19 RT-PCR Result NEGATIVE (Negative)
== END 2020-02-13 01:56 ==
PROVIDERS: PCP Family Medicine; Visit Provider Family Medicine
DX: Z11.59 Encounter for screening for other viral diseases (principal); Z01.818 Encounter for other preprocedural examination
CPT/HCPCS: U0003

== ENCOUNTER 2020-07-30 13:51 | Outpatient (REF) | payer MEDICARE, MEDICAID, SELFPAY ==
--- NOTE | 2020-07-30 13:00 | PAPFT_PTH ---
PATIENT: Olena Perry LOC: [facility] U#:[id number] AGE/SX: 30/F ROOM: RE07/30/[address]: ANDRÉS Mendoza : 1990 BED: DIS: 07/30/2020 SPEC #: [id number] RECD: 07/30/20 18:15 STATUS: [place] REQ #: [id number] FIDE: 07/30/20 13:[address]: Priti Teixeira DEPT: [facility] Cytology RECD BY: Kavya Ramirez ENTERED: 07/30/20 18:15 SP TYPE: PAPFT OTHR DR: Domitila Dorado MD, DC Tissues: 1 - CX/ENDOCX FOR PAP SMEARS Procedures: PAP THIN PREP/[facility] Screening Comments: [id number]
[2020-08-01 14:20] LABS: Chlamydia Result Negative (Negative); GC Result Negative (Negative)
== END 2020-07-30 13:52 | disposition home or self-care (01) ==
LOC: LBN 13:51
PROVIDERS: PCP Family Medicine; Visit Provider Nurse Practitioner Family
DX: Z11.3 Encounter for screening for infections with a predominantly sexual mode of transmission (principal); Z12.4 Encounter for screening for malignant neoplasm of cervix
CPT/HCPCS: 87491; 87591; 88142

== ENCOUNTER 2021-01-23 15:45 | Outpatient (REF) | payer MEDICARE, MEDICAID, SELFPAY ==
[2021-01-25 14:32] LABS: Chlamydia Result Negative (Negative); GC Result Negative (Negative)
== END 2021-01-23 15:46 | disposition home or self-care (01) ==
LOC: LBN 15:45
PROVIDERS: PCP Family Medicine; Visit Provider Obstetrics & Gynecology
DX: N89.8 Other specified noninflammatory disorders of vagina (principal)
CPT/HCPCS: 87491; 87591

== ENCOUNTER 2021-03-20 11:19 | Emergency (ER) | payer MEDICARE, MEDICAID, SELFPAY ==
--- NOTE | 2021-03-20 11:21 | W.ED.GENAD ---
Discharge Plan Disposition Patient Disposition: HOME Condition: Improving Discharge Details Clinical Impression: Epigastric abdominal pain Primary Care Provider: Domitila Dorado ED Provider: Becca Talavera Home Meds and New Rx's Prescriptions: New sucralfate [Carafate] 1 gram tablet 1 gm PO QACHS Qty: 14 RF: 0 Prilosec 10 mg susp,delayed release for recon 20 mg PO DAILY Qty: 30 RF: 0 Continued Nexplanon 68 mg implant 1 implant SBD ONCE RF: 0 metronidazole 0.75 % gel 1 appful vaginal DAILY 5 Days Qty: 70 RF: 0 ibuprofen 600 mg tablet 600 mg PO BID MDD 2 PRN (Reason: fever or pain) Qty: 30 RF: 1 amoxicillin 500 mg capsule 2,000 mg PO ONCE Qty: 4 RF: 1 acyclovir 800 mg tablet 800 mg PO BID 5 Days Qty: 10 RF: 4 Discharge Instructions Instructions: GERD (Gastroesophageal Reflux Disease) (ED), Epigastric Pain (ED) Additional Instructions: Your lab work today is reassuring but does note elevation of your bilirubin and a liver enzyme. This could be non-specific but sometimes is seen with pain due to a stone in your gallbladder. Since you did not obtain the abdominal ultrasound, if your pain worsens you could consider returning to the hospital for an ultrasound or following up with your doctor for reevaluation. Drink plenty of fluids and get plenty of rest. Prescriptions for Prilosec and Carafate have been sent electronically to your pharmacy. 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 No other associated symptoms. Vitals within normal limits. Patient appears comfortable and nontoxic. She does have tenderness to palpation in the epigastric region. There is no rigidity or guarding. Differential diagnosis includes GERD, gastritis, PUD, biliary colic, cholecystitis. We will place an IV, bolus IV fluids, screening labs, urinalysis, urine test and give IV Pepcid, p.o. Carafate and GI cocktail and reassess. Labs reviewed. White blood cell count 11. T bili 1.3. AST 43. Lipase is normal. Patient has had elevated T bili in the past. As she also has elevated AST, will order abdominal ultrasound to rule out cholelithiasis or cholecystitis. There was a long delay in sending patient to ultrasound due to high volume of patients needing ultrasound of emergent nature. Patient had significant relief of her symptoms and declined staying for the ultrasound. As her symptoms have improved and her labs are reassuring, her presentation may be more consistent with gastritis, GERD. She was given surgery follow-up information if needed for further evaluation and consideration for upper endoscopy. She was advised to return to the emergency department immediately if she develops any worsening or new concerning symptoms for reevaluation and consideration for ultrasound if any Medical Records Medical records reviewed: Yes I reviewed the patient's medical records. Lab Data Lab results reviewed: Yes I reviewed the patient's lab results. Labs: Laboratory Tests Range/Units 03/20/21 03/20/21 03/20/21 11:54 11:54 11:54 WBC (4.4-10.8) 10^3/uL 11.01 H RBC (3.93-5.22) 10^6/uL 4.71 Hgb (11.2-15.7) g/dL 13.9 Hct (36.0-46.0) % 41.9 MCV (80-95) fL 89.0 MCH (27.0-33.0) pg 29.5 MCHC (32.0-36.0) % 33.2 RDW (11.7-14.6) % 12.3 Plt Count (130-400) 10^3/uL 315 MPV (8.0-11.0) fL 10.4 Immature Gran % 0.3 Neutrophils % 72.3 Lymphocytes % 15.4 Monocytes % 10.2 Eosinophils % 1.3 Basophils % 0.5 Nucleated RBC % % 0 Absolute Neutrophils (1.2-6.7) 10^3/uL 7.96 H Absolute Lymphocytes (1.2-3.4) 10^3/uL 1.70 Absolute Monocytes (0.1-0.8) 10^3/uL 1.12 H Absolute Eosinophils (0.0-0.7) 10^3/uL 0.14 Absolute Basophils (0.0-0.2) 10^3/uL 0.06 Sodium (136-145) mmol/L 145 Potassium (3.5-5.1) mmol/L 4.1 Chloride (98-107) mmol/L 109 H Carbon Dioxide (21.0-32.0) mmol/L 26.5 Anion Gap (3-11) mmol/L 9.5 BUN (7-18) mg/dL 14 Creatinine (0.55-1.02) mg/dL 0.8 Estimated GFR/1.73 m2 (mL/min/1.73m2) >= 60.00 Glucose (74-106) mg/dL 97 Calcium (8.5-10.1) mg/dL 8.9 Total Bilirubin (0.2-1.0) mg/dL 1.3 H AST (15-37) U/L 43 H ALT (14-59) U/L 42 Alkaline Phosphatase (46-116) U/L 89 Total Protein (6.4-8.2) g/dL 7.5 Albumin (3.4-5.0) g/dL 4.1 Lipase (73-393) U/L 235 Urine Color (Yellow) Urine Clarity (Clear) Urine pH (5-8) Ur Specific [place] (1.005-1.025) Urine Protein (Negative) mg/dL Urine Ketones (Negative) mg/dL Urine Blood (Negative) Urine Nitrite (Negative) Urine Bilirubin (Negative) Urine Urobilinogen (Up TO 0.2) EU/dL Ur Leukocyte Esterase (Negative) Urine RBC (0-2) HPF Urine WBC (0-5) HPF Ur Epithelial Cells (Negative) HPF Urine Crystals (Negative) HPF Urine Bacteria (Negative) HPF Urine Casts (Negative) LPF Urine Mucus (Negative) Ur Culture Indicated? Urine Glucose (Negative) mg/dL Range/Units 03/20/21 11:54 WBC (4.4-10.8) 10^3/uL RBC (3.93-5.22) 10^6/uL Hgb (11.2-15.7) g/dL Hct (36.0-46.0) % MCV (80-95) fL MCH (27.0-33.0) pg MCHC (32.0-36.0) % RDW (11.7-14.6) % Plt Count (130-400) 10^3/uL MPV (8.0-11.0) fL Immature Gran % Neutrophils % Lymphocytes % Monocytes % Eosinophils % Basophils % Nucleated RBC % % Absolute Neutrophils (1.2-6.7) 10^3/uL Absolute Lymphocytes (1.2-3.4) 10^3/uL Absolute Monocytes (0.1-0.8) 10^3/uL Absolute Eosinophils (0.0-0.7) 10^3/uL Absolute Basophils (0.0-0.2) 10^3/uL Sodium (136-145) mmol/L Potassium (3.5-5.1) mmol/L Chloride (98-107) mmol/L Carbon Dioxide (21.0-32.0) mmol/L Anion Gap (3-11) mmol/L BUN (7-18) mg/dL Creatinine (0.55-1.02) mg/dL Estimated GFR/1.73 m2 (mL/min/1.73m2) Glucose (74-106) mg/dL Calcium (8.5-10.1) mg/dL Total Bilirubin (0.2-1.0) mg/dL AST (15-37) U/L ALT (14-59) U/L Alkaline Phosphatase (46-116) U/L Total Protein (6.4-8.2) g/dL Albumin (3.4-5.0) g/dL Lipase (73-393) U/L Urine Color (Yellow) Yellow Urine Clarity (Clear) Sl Cloudy Urine pH (5-8) 6.0 Ur Specific [place] (1.005-1.025) >= 1.030 H Urine Protein (Negative) mg/dL Negative Urine Ketones (Negative) mg/dL Negative Urine Blood (Negative) Negative Urine Nitrite (Negative) Negative Urine Bilirubin (Negative) Negative Urine Urobilinogen (Up TO 0.2) EU/dL 1.0 H Ur Leukocyte Esterase (Negative) Small H Urine RBC (0-2) HPF 0-2 Urine WBC (0-5) HPF 5-10 Ur Epithelial Cells (Negative) HPF Many Urine Crystals (Negative) HPF Negative Urine Bacteria (Negative) HPF Few Urine Casts (Negative) LPF Negative Urine Mucus (Negative) Trace Ur Culture Indicated? No/Sq. Contamination Urine Glucose (Negative) mg/dL Negative HPI General Mode of arrival: ambulatory. Date/Time Provider Initiated Documentation: 03/20/21 11:19. Limitations to Documentation: no limitations. Information obtained by: patient and family. 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 She states she awoke and ate breakfast and felt that her baseline without pain and then was laying in bed watching TV when she developed sharp epigastric abdominal pain. She denies any radiation of pain. She denies any aggravating or alleviating factors. She has not taken any medication for this pain. She denies fever, nausea, vomiting, diarrhea or urinary symptoms. She states she did drink 2 beers last night which she does every other day. She denies any alcohol use. Related Data Home Medications Medication Instructions Recorded Confirmed etonogestrel 68 mg subdermal 1 implant SBD ONCE 11/10/19 12/04/19 implant ibuprofen 600 mg tablet 600 mg PO BID PRN #30 tab-cap MDD 2 12/04/20 amoxicillin 500 mg capsule 2,000 mg PO ONCE #4 cap 12/25/20 metronidazole 0.75 % vaginal gel 1 appful VAGINAL DAILY 5 Days #70 g 01/23/21 01/23/21 acyclovir 800 mg tablet 800 mg PO BID 5 Days #10 tab 02/22/21 omeprazole magnesium [Prilosec] 20 mg PO DAILY #30 ea 03/20/21 sucralfate [Carafate] 1 gm PO QACHS #14 tab 03/20/21 Previous Rx's Medication Instructions Recorded ibuprofen 600 mg tablet 600 mg PO BID PRN #30 tab-cap MDD 2 12/04/20 amoxicillin 500 mg capsule 2,000 mg PO ONCE #4 cap 12/25/20 metronidazole 0.75 % vaginal gel 1 appful VAGINAL DAILY 5 Days #70 g 01/23/21 acyclovir 800 mg tablet 800 mg PO BID 5 Days #10 tab 02/22/21 omeprazole magnesium [Prilosec] 20 mg PO DAILY #30 ea 03/20/21 sucralfate [Carafate] 1 gm PO QACHS #14 tab 03/20/21 Allergies Allergy/AdvReac Type Severity Reaction Status Date / Time No Known Allergies Allergy Verified 07/30/20 12:46 General BULMARO: 3 Review of Systems All systems reviewed & are unremarkable except as noted in HPI and below Constitutional Constitutional: Reports as per HPI, Denies chills and Denies fever(s) Eyes Eyes: Denies blurry vision ENT Ears, Nose, Mouth, and Throat: Denies dizziness, Denies sore throat and Denies throat swelling Cardiovascular Cardiovascular: Denies chest pain and Denies dyspnea Respiratory Respiratory: Denies cough and Denies dyspnea Gastrointestinal Gastrointestinal: Reports abdominal pain, Denies diarrhea and Denies vomiting Genitourinary Genitourinary: Denies hematuria and Denies dysuria Musculoskeletal Musculoskeletal: Denies back pain and Denies numbness Integumentary/Breasts Skin/Breast: Denies lesions and Denies rash Neurologic Neurologic: Denies dizziness, Denies localized weakness and Denies numbness Allergic/Immunologic Allergic/Immunologic: Denies throat swelling [facility] Medical History (Updated 03/20/21 @ 14:58 by Becca Talavera DO) Abnormal Pap smear of cervix (11/18/16) LGSIL. 07/2017 colpo: ECC neg. Repeat pap 07/2018 BV (bacterial vaginosis) 07/2017. Rx with po Metronidazole. Surgical History OPEN HEART SURGERY Tetralogy of [place]. Repair at 3mo. Followed by Dr. Dexter at [facility] [place]. Family History Mother Bipolar disorder Depression Asthma Father Human immunodeficiency virus (HIV) positive Paternal Grandmother , age 80 Breast cancer Diabetes Heart disease Sister No problems noted. Brother No problems noted. Maternal Grandfather , age 72 Depression Heart disease Paternal Grandfather , age 78 Heart disease Maternal Grandmother No problems noted. Social History Smoking/Tobacco Use Status: Never Smoking risk assessment performed?: Yes Alcohol Intake: current Alcohol Intake frequency: 0-2 drinks per day Alcohol type: beer Drug use: Never Substance use type: does not use Caregiver/Support person: No Household members: none Housing: apartment Communication Needs: None Pets and animals: No Sexually active: Yes Do you think of yourself as: straight/heterosexual Current gender identity: female What is your relationship status?: never How often do you talk on the phone with friends or family?: three or more times per week How often do you get together with friends or relatives?: three or more times per week How often do you attend yarsani or pentecostal services?: 4 or more times per year Do you belong to any clubs or organized social groups?: no Panel score (0-1 are the most socially isolated patients): 2 What type of physical activity do you participate in: walking Duration: 15-30 minutes/day Frequency: 3-4 times per week Meseret/Restorationist: Jew Special meseret needs: No Seatbelt use: sometimes Helmet use: No Drive intox or ride w/intox compactor driver: No Do you feel safe at home: Yes Do you feel safe in your relationship?: Yes Female Reproductive History Menstrual control method: implanted Exam Const General: cooperative and no acute distress HENMT Head: normal to inspection Face and sinus: normal facial exam Eyes General: appearance normal, both eyes and all related structures EOM: EOM intact bilaterally Neck Neck: normal visual inspection and No submandibular swelling Lymphatic: no lymphadenopathy noted Chest Chest: normal inspection of the chest and no tenderness Resp Effort & Inspection: normal respiratory effort and able to speak in complete sentences Auscultation: clear to auscultation bilaterally Cardio Rate: regular rate Rhythm: regular rhythm GI Inspection: normal to inspection Palpation: soft, not firm, not rigid and tender in the epigastrum Auscultation: hypoactive bowel sounds Skin General skin exam: no rashes or lesions noted Neuro General: patient alert, patient awake and patient oriented x3 Cognition: normal cognition Speech: speech normal Motor: muscle tone normal throughout Sensory Exam: no sensory deficits noted Extrem General: normal to inspection, full ROM, capillary refill normal, no calf tenderness bilaterally and no edema Psych Appearance: grossly normal Mental Status: mental status grossly normal Speech and Movement: speech and movement normal Affect: normal affect
[2021-03-20 11:26] VITALS: BP 135/80; PULSE 85; RESP 16; TEMP 36.2; O2SAT 97
[2021-03-20] MEDS: FAMOTIDINE 20 MG/50 ML BAG 200 MG IVPB (12:11)
[2021-03-20 12:12] LABS: Bilirubin Negative (Negative); Blood Negative (Negative); Clarity Sl Cloudy (Clear); Glucose Negative (Negative); Ketones Negative (Negative); Leukocyte Esterase Small (Negative); Nitrite Negative (Negative); Specific Gravity >= 1.030 (1.005-1.025)
[2021-03-20] MEDS: Sucralfate 1 GM TAB PO (12:12)
[2021-03-20 12:13] LABS: Abs Immature Grans 0.03 10^3/uL (0.0-0.06); Absolute Eosinophil Count 0.14 10^3/uL (0.0-0.7); Absolute Monocyte Count 1.12 10^3/uL (0.1-0.8); Basophils % 0.5; Eosinophils % 1.3; HCT 41.9 % (36.0-46.0); HGB 13.9 g/dL (11.2-15.7); Immature Grans % 0.3; Lymphocytes % 15.4; MCH 29.5 pg (27.0-33.0); MCHC 33.2 % (32.0-36.0); MPV 10.4 fL (8.0-11.0); Monocytes % 10.2; Neutrophils % 72.3; Nucleated RBC 0 %; Platelet Count 315 10^3/uL (130-400); RBC 4.71 10^6/uL (3.93-5.22); RDW 12.3 % (11.7-14.6); RDW-SD 40.5 fL; WBC 11.01 10^3/uL (4.4-10.8)
[2021-03-20 12:17] LABS: Absolute Basophil Count 0.06 10^3/uL (0.0-0.2); Absolute Neutrophil Count 7.96 10^3/uL (1.2-6.7)
[2021-03-20 12:20] LABS: Lipase 235 U/L (73-393)
[2021-03-20 12:23] LABS: Bacteria Few HPF (Negative); C & S Indicated? No/Sq. Contamination; Casts Negative LPF (Negative); Crystals Negative HPF (Negative); Epithelial Cells Many HPF (Negative); Mucus Trace (Negative); RBC 0-2 HPF (0-2)
[2021-03-20 12:24] LABS: ALT 42 U/L (14-59); AST 43 U/L (15-37); Albumin 4.1 g/dL (3.4-5.0); Alkaline Phosphatase 89 U/L (46-116); Anion Gap 9.5 mmol/L (3-11); BUN 14 mg/dL (7-18); Bilirubin, Total 1.3 mg/dL (0.2-1.0); CO2 26.5 mmol/L (21.0-32.0); CREATININE 0.8 mg/dL (0.55-1.02); Calcium 8.9 mg/dL (8.5-10.1); Chloride 109 mmol/L (98-107); Glucose 97 mg/dL (74-106); Potassium 4.1 mmol/L (3.5-5.1); Sodium 145 mmol/L (136-145); Total Protein 7.5 g/dL (6.4-8.2)
[2021-03-20 13:27] VITALS: BP 114/61; PULSE 68; RESP 16; O2SAT 98
[2021-03-20 15:08] VITALS: BP 111/63; PULSE 60; RESP 18; TEMP 36.4; O2SAT 98
== END 2021-03-20 15:15 | disposition home or self-care (01) ==
PROVIDERS: Emergency Provider Physician Assistant; PCP Family Medicine
DX: R10.13 Epigastric pain (principal)
CPT/HCPCS: 36415; 80053; 83690; 96374; 99284; 81003; 81015; 85025; 99283

== ENCOUNTER 2021-04-24 10:06 | Outpatient (REF) | payer MEDICARE, MEDICAID, SELFPAY ==
[2021-04-25 15:34] LABS: Chlamydia Result Negative (Negative); GC Result Negative (Negative)
== END 2021-04-24 10:07 | disposition home or self-care (01) ==
LOC: LBN 10:06
PROVIDERS: PCP Family Medicine; Visit Provider Obstetrics & Gynecology
DX: Z11.3 Encounter for screening for infections with a predominantly sexual mode of transmission; N89.8 Other specified noninflammatory disorders of vagina; Z72.51 High risk heterosexual behavior
CPT/HCPCS: 87491; 87591

== ENCOUNTER 2021-09-19 11:57 | Outpatient (REF) | payer MEDICARE, MEDICAID, SELFPAY ==
--- NOTE | 2021-09-19 11:15 | PAPFT_PTH ---
PATIENT: Olena Perry LOC: [facility] U#:[id number] AGE/SX: 31/F ROOM: RE09/19/[address]: ANDRÉS Mendoza : 1990 BED: DIS: 09/19/2021 SPEC #: [id number] RECD: 09/19/21 17:40 STATUS: [place] REQ #: [id number] FIDE: 09/19/21 11:[address]: Priti Teixeira DEPT: [facility] Cytology RECD BY: Kavya Ramirez ENTERED: 09/19/21 17:40 SP TYPE: PAPFT OTHR DR: Domitila Dorado MD, DC Tissues: 1 - CX/ENDOCX FOR PAP SMEARS Procedures: PAP THIN PREP/UVM Screening HPV DNA PROBE Comments: [id number]
== END 2021-09-19 11:58 | disposition home or self-care (01) ==
LOC: LBN 11:57
PROVIDERS: PCP Family Medicine; Visit Provider Nurse Practitioner Family
DX: Z12.4 Encounter for screening for malignant neoplasm of cervix (principal); Z11.51 Encounter for screening for human papillomavirus (HPV); R87.810 Cervical high risk human papillomavirus (HPV) DNA test positive
CPT/HCPCS: 88142; 87624

== ENCOUNTER 2021-12-30 18:09 | Outpatient (REF) | payer MEDICARE, MEDICAID, SELFPAY | END 2021-12-30 18:10 | disposition home or self-care (01) | LOC: LBN 18:09 | PROVIDERS: PCP Family Medicine; Visit Provider Obstetrics & Gynecology | DX: N89.8 Other specified noninflammatory disorders of vagina (principal) | CPT/HCPCS: 87480; 87510; 87660 ==

== ENCOUNTER 2022-11-18 11:24 | Outpatient (REF) | payer MEDICARE, MEDICAID, SELFPAY ==
--- NOTE | 2022-11-18 10:00 | PAPFT_PTH ---
PATIENT: Olena Perry LOC: [facility] U#:[id number] AGE/SX: 32/F ROOM: RE11/18/[address]: Nneka Perez MD : 1990 BED: DIS: 11/18/2022 SPEC #: [id number] RECD: 11/18/22 12:41 STATUS: [place] REQ #: [id number] FIDE: 11/18/22 10:[address]: Nneka Perez DEPT: [facility] Cytology RECD BY: Kavya Ramirez ENTERED: 11/18/22 12:41 SP TYPE: PAPFT OTHR DR: Domitila Dorado MD, DC Tissues: 1 - CX/ENDOCX FOR PAP SMEARS Procedures: PAP THIN PREP/UVM Screening HPV DNA PROBE Comments: [id number] (HPV 16 & 18/45)
== END 2022-11-18 11:25 | disposition home or self-care (01) ==
LOC: LBN 11:24
PROVIDERS: PCP Family Medicine; Visit Provider Obstetrics & Gynecology
DX: R87.610 Atypical squamous cells of undetermined significance on cytologic smear of cervix (ASC-US) (principal)
CPT/HCPCS: 88142; 87624

== ENCOUNTER 2022-12-30 11:18 | Outpatient (REF) | payer MEDICARE, MEDICAID, SELFPAY ==
--- NOTE | 2022-12-30 10:59 | CER_PTH ---
PATIENT: Olena Perry LOC: [facility] U#:[id number] AGE/SX: 32/F ROOM: RE12/30/[address]: Nneka Perez MD : 1990 BED: DIS: 12/30/2022 SPEC #: [id number] RECD: 12/30/22 12:56 STATUS: [place] REQ #: [id number] FIDE: 12/30/22 10:[address]: Nneka Perez DEPT: Surgical Specimen RECD BY: Kavya Ramirez ENTERED: 12/30/22 12:56 SP TYPE: CER OTHR DR: Domitila Dorado MD, DC Tissues: 1 - CERVICAL BIOPSY Procedures: GROSS AND MICRO LEVEL 4 IMMUNOPEROXIDASE STAIN Comments: [id number]
== END 2022-12-30 11:19 | disposition home or self-care (01) ==
LOC: LBN 11:18
PROVIDERS: PCP Family Medicine; Visit Provider Obstetrics & Gynecology
DX: N87.1 Moderate cervical dysplasia (principal); R87.810 Cervical high risk human papillomavirus (HPV) DNA test positive
CPT/HCPCS: 88305; 88361

== ENCOUNTER 2023-01-14 14:12 | Outpatient (REF) | payer MEDICARE, MEDICAID, SELFPAY ==
--- NOTE | 2023-01-14 13:45 | CER_PTH ---
PATIENT: Olena Perry LOC: [facility] U#:[id number] AGE/SX: 32/F ROOM: RE01/14/[address]: Nneka Perez MD : 1990 BED: DIS: 01/14/2023 SPEC #: [id number] RECD: 01/14/23 17:01 STATUS: [place] RE #: [id number] FIDE: 01/14/23 13:[address]: Nneka Perez DEPT: Surgical Specimen RECD BY: Kavya Ramirez ENTERED: 01/14/23 17:01 SP TYPE: CER OTHR DR: Domitila Dorado MD, DC Tissues: 1 - CERVICAL LEEP/LOOP Procedures: IMMUNOPEROXIDASE STAIN GROSS AND MICRO LEVEL 5 Comments: [id number]
== END 2023-01-14 14:13 | disposition home or self-care (01) ==
LOC: LBN 14:12
PROVIDERS: PCP Family Medicine; Visit Provider Obstetrics & Gynecology
DX: N87.1 Moderate cervical dysplasia (principal)
CPT/HCPCS: 88307; 88361

== ENCOUNTER 2023-06-01 14:56 | Outpatient (CLI) | payer MEDICARE, MEDICAID, SELFPAY ==
[2023-06-01 15:01] LABS: Panorama Kit Sent via Fed Ex
[2023-06-01 15:09] LABS: Abs Immature Grans 0.08 10^3/uL (0.0-0.06); Absolute Basophil Count 0.06 10^3/uL (0.0-0.2); Absolute Lymphocyte Count 1.59 10^3/uL (1.2-3.4); Absolute Monocyte Count 1.27 10^3/uL (0.1-0.8); Basophils % 0.4; Eosinophils % 0.7; HCT 37.1 % (36.0-46.0); HGB 12.6 g/dL (11.2-15.7); Immature Grans % 0.6; MCH 29.6 pg (27.0-33.0); MCV 87 fL (80-95); MPV 10.2 fL (8.0-11.0); Monocytes % 8.8; Neutrophils % 78.5; Platelet Count 255 10^3/uL (130-400); RBC 4.25 10^6/uL (3.93-5.22); RDW 12.5 % (11.7-14.6); RDW-SD 39.8 fL; WBC 14.47 10^3/uL (4.4-10.8)
[2023-06-01 15:10] LABS: Absolute Neutrophil Count 11.36 10^3/uL (1.2-6.7)
[2023-06-02 10:42] LABS: Hepatitis B Surface Ag Negative (Negative)
[2023-06-02 11:09] LABS: Varicella IgG Antibody Positive (See Note)
[2023-06-02 11:16] LABS: Rubella IgG Ab (UVM) Negative (See Note)
[2023-06-02 11:18] LABS: Hepatitis C Ab w Rflx HCV PCR Negative (Negative)
[2023-06-02 11:24] LABS: HIV-1/2 Ag & Ab Screen Negative (Negative)
[2023-06-04 20:48] LABS: Syphilis IgG w/Reflex Nonreactive (Nonreactive)
== END 2023-06-01 14:57 | disposition home or self-care (01) ==
LOC: LBN 15:16 → LBO 15:30
PROVIDERS: Advanced Practice Midwife; PCP Family Medicine; Visit Provider Advanced Practice Midwife
DX: Z34.91 Encounter for supervision of normal pregnancy, unspecified, first trimester (principal); Z36.89 Encounter for other specified antenatal screening; Z3A.36 36 weeks gestation of pregnancy; R39.89 Other symptoms and signs involving the genitourinary system
CPT/HCPCS: 36415; 86787; 86803; 86850; 86900; 86901; 87340; 87389; 85025; 86762; 86780; 87086

== ENCOUNTER 2023-06-01 15:16 | Outpatient (REF) | payer MEDICARE, MEDICAID, SELFPAY ==
--- NOTE | 2023-06-01 14:00 | PAPFT_PTH ---
PATIENT: Olena Perry LOC: [facility] U#:[id number] AGE/SX: 32/F ROOM: RE06/01/[address]: Trinidad Beverly CNM : 1990 BED: DIS: 06/01/2023 SPEC #: [id number] RECD: 06/01/23 17:53 STATUS: [place] REQ #: [id number] FIDE: 06/01/23 14:[address]: Trinidad Beverly DEPT: [facility] Cytology RECD BY: Kavya Ramirez ENTERED: 06/01/23 17:54 SP TYPE: PAPFT OTHR DR: Domitila Dorado MD, DC Tissues: 1 - CX/ENDOCX FOR PAP SMEARS Procedures: PAP THIN PREP/UVM Screening HPV DNA PROBE Comments: [id number] (CHLAMYDIA/GC)
[2023-06-02 15:08] LABS: Chlamydia Result Negative (Negative); GC Result Negative (Negative)
== END 2023-06-01 15:17 | disposition home or self-care (01) ==
LOC: LBN 15:16
PROVIDERS: PCP Family Medicine; Visit Provider Advanced Practice Midwife
DX: Z12.4 Encounter for screening for malignant neoplasm of cervix (principal); Z11.51 Encounter for screening for human papillomavirus (HPV); Z72.52 High risk homosexual behavior
CPT/HCPCS: 87491; 87591; 88142; 87624

== ENCOUNTER 2023-07-07 20:15 | Emergency (ER) | payer MEDICARE, MEDICAID, SELFPAY ==
[2023-07-07 20:19] VITALS: BP 145/94; PULSE 83; RESP 21; TEMP 36.6; O2SAT 99
[2023-07-07 20:41] LABS: HCT 37.7 % (36.0-46.0); HGB 12.5 g/dL (11.2-15.7); MCHC 33.2 % (32.0-36.0); MCV 90 fL (80-95); MPV 10.8 fL (8.0-11.0); Platelet Count 310 10^3/uL (130-400); RBC 4.17 10^6/uL (3.93-5.22); RDW-SD 43.1 fL; WBC 15.26 10^3/uL (4.4-10.8)
[2023-07-07 20:55] LABS: Amylase 67 U/L (25-115); Anion Gap 11.3 mmol/L (3-11); BUN 10 mg/dL (7-18); CO2 25.7 mmol/L (21.0-32.0); CREATININE 0.6 mg/dL (0.55-1.02); Calcium 9.4 mg/dL (8.5-10.1); Chloride 103 mmol/L (98-107); Estimated GFR 122.23 (mL/min/1.73m2); Glucose 86 mg/dL (74-106); Lipase 52 U/L (16-77); Potassium 4.7 mmol/L (3.5-5.1); Sodium 140 mmol/L (136-145)
[2023-07-07 21:10] LABS: Abs Immature Grans 0.09 10^3/uL (0.0-0.06); Absolute Eosinophil Count 0.25 10^3/uL (0.0-0.7); Absolute Lymphocyte Count 1.86 10^3/uL (1.2-3.4); Absolute Neutrophil Count 10.19 10^3/uL (1.2-6.7); Basophils % 0.4; Eosinophils % 1.8; HCT 35.6 % (36.0-46.0); HGB 11.9 g/dL (11.2-15.7); Immature Grans % 0.7; Lymphocytes % 13.6; MCH 29.6 pg (27.0-33.0); MCHC 33.4 % (32.0-36.0); MCV 89 fL (80-95); Monocytes % 9.1; Neutrophils % 74.4; Platelet Count 262 10^3/uL (130-400); RBC 4.02 10^6/uL (3.93-5.22); RDW 12.9 % (11.7-14.6); RDW-SD 41.9 fL; WBC 13.69 10^3/uL (4.4-10.8)
[2023-07-07 21:11] LABS: Absolute Basophil Count 0.05 10^3/uL (0.0-0.2); Absolute Monocyte Count 1.25 10^3/uL (0.1-0.8)
--- NOTE | 2023-07-07 21:15 | W.ED.GENAD ---
HPI General Mode of arrival: ambulatory. Date/Time Provider Initiated Documentation: 07/07/23 20:32. Limitations to Documentation: no limitations. Information obtained by: patient. HPI Narrative: 33yo F 19w gestation uncomplicated 1st presenting with RUQ abdominal pain and nausea. Saw her PCP today for this, plan for outpatient ultrasound (she anticipates a call tomorrow). Pain has been intermittent over the past week, usually occurs after eating. Has not taken any medications for it. Associated nausea, no vomiting. Has been concerned about constipation and taking prunes and MoM, now having frequent loose stools. This evening ate pork chops, pain returned. Has been improving since onset, now almost resolved. No fevers, chills, rash, dysuria, hematuria, contractions, vaginal bleeding, vaginal leaking,or other concerns. Related Data Home Medications Medication Instructions Recorded Confirmed amoxicillin 500 mg capsule 2,000 mg (4 x 500 mg) PO ONCE #4 04/13/23 07/07/23 caps vitamin no.180-ferrous 1 tab PO DAILY #90 tabs 05/22/23 07/07/23 fumarate 27 mg-folic acid 1 mg tablet ascorbic acid (vitamin C) 1,000 mg 1 g PO BID #90 caps 05/28/23 07/07/23 capsule magnesium hydroxide 400 mg/5 mL 5 ml PO DAILY PRN stomach upset 05/28/23 07/07/23 oral suspension (Milk of Magnesia) #355 mL aspirin 81 mg tablet,delayed 81 mg PO PRN pain #60 tabs 06/01/23 07/07/23 release docusate sodium 100 mg capsule 100 mg PO BID #60 caps 06/01/23 07/07/23 (Colace) Previous Rx's Medication Instructions Recorded amoxicillin 500 mg capsule 2,000 mg (4 x 500 mg) PO ONCE #4 04/13/23 caps vitamin no.180-ferrous 1 tab PO DAILY #90 tabs 05/22/23 fumarate 27 mg-folic acid 1 mg tablet ascorbic acid (vitamin C) 1,000 mg 1 g PO BID #90 caps 05/28/23 capsule magnesium hydroxide 400 mg/5 mL 5 ml PO DAILY PRN stomach upset 05/28/23 oral suspension (Milk of Magnesia) #355 mL aspirin 81 mg tablet,delayed 81 mg PO PRN pain #60 tabs 06/01/23 release docusate sodium 100 mg capsule 100 mg PO BID #60 caps 06/01/23 (Colace) Allergies Allergy/AdvReac Type Severity Reaction Status Date / Time No Known Allergies Allergy Verified 07/07/23 20:18 General Stated Complaint: Abd Prob BULMARO: 3 Review of Systems Narrative: see HPI Exam Narrative Exam Narrative: General: Alert, well appearing, well nourished, in no acute distress. Head: Normocephalic, atraumatic Neck: Trachea midline, ?Neck supple. ENT: ?MMM.? Cardiac: ?RRR, no murmurs appreciated Resp: No respiratory distress. CTAB. Abd: ?Gravid, soft, non-tender. : ?No suprapubic tenderness. No CVA tenderness. Extremities: ?No deformities.? No peripheral edema. Neurologic: GCS 15. ? Moves all extremities freely against gravity Course Vital Signs Vital signs: Vital Signs Temperature 36.6 C 07/07/23 20:19 Pulse 83 07/07/23 20:19 Respiratory Rate 21 07/07/23 20:19 Blood Pressure 145/94 H 07/07/23 20:19 Pulse Oximetry 99 07/07/23 20:19 Temperature 36.6 C 07/07/23 20:19 Temperature Source Oral 07/07/23 20:19 Pulse 83 07/07/23 20:19 Respiratory Rate 21 07/07/23 20:19 Respiratory Effort Normal, Non-Labored 07/07/23 20:24 Blood Pressure 145/94 H 07/07/23 20:19 Blood Pressure Position Sitting 07/07/23 20:19 Pulse Oximetry 99 07/07/23 20:19 Oxygen Delivery Method Room Air 07/07/23 20:19 Oxygen Flow Rate 0 07/07/23 20:19 Pain Level 7 07/07/23 20:19 Lab/Test Results Lab/Test Results: Laboratory Tests Range/Units 07/07/23 07/07/23 14:10 21:08 WBC (4.4-10.8) 10^3/uL 15.26 H 13.69 H RBC (3.93-5.22) 10^6/uL 4.17 4.02 Hgb (11.2-15.7) g/dL 12.5 11.9 Hct (36.0-46.0) % 37.7 35.6 L MCV (80-95) fL 90 89 MCH (27.0-33.0) pg 30.0 29.6 MCHC (32.0-36.0) % 33.2 33.4 RDW (11.7-14.6) % 13.0 12.9 Plt Count (130-400) 10^3/uL 310 262 MPV (8.0-11.0) fL 10.8 10.0 Immature Gran % 0.7 Neutrophils % 74.4 Lymphocytes % 13.6 Monocytes % 9.1 Eosinophils % 1.8 Basophils % 0.4 Nucleated RBC % (0.0-0.3) % 0.0 Absolute Neutrophils (1.2-6.7) 10^3/uL 10.19 H Absolute Lymphocytes (1.2-3.4) 10^3/uL 1.86 Absolute Monocytes (0.1-0.8) 10^3/uL 1.25 H Absolute Eosinophils (0.0-0.7) 10^3/uL 0.25 Absolute Basophils (0.0-0.2) 10^3/uL 0.05 Sodium (136-145) mmol/L 140 Potassium (3.5-5.1) mmol/L 4.7 Chloride (98-107) mmol/L 103 Carbon Dioxide (21.0-32.0) mmol/L 25.7 Anion Gap (3-11) mmol/L 11.3 H BUN (7-18) mg/dL 10 Creatinine (0.55-1.02) mg/dL 0.6 Est GFR (CKD-EPI 2020) (mL/min/1.73m2) 122.23 Glucose (74-106) mg/dL 86 Calcium (8.5-10.1) mg/dL 9.4 Amylase (25-115) U/L 67 Lipase (16-77) U/L 52 Medical Decision Making 33yo F 19w gestation uncomplicated 1st presenting with RUQ abdominal pain and nausea. Saw her PCP today for this, plan for outpatient ultrasound (she anticipates a call tomorrow). This evening after dinner (pork chops) pain recurred so she presented to the ED. Vital signs and physical exam reassuring, no significant tenderness on exam. FHT 140's. Symptoms and exam not consistent with labor or earline rincon. Suspect galllstones. Given tylenol for pain. Labs reviewed as below, CBC with mild leukocytosis to 13, CMP with no significant abnormalities. UA with no hematuria to suggest kidney stone, UTI, or pyelonephritis. With normal LFTs, afebrile, overall well low suspicion for cholangitis, choledocolithiasis, emergent gallbladder pathology. Likely biliary colic. Ideally would get ultrasound but not available overnight, would not transfer emergently for this. Given reassuring labs and exam, will not get CT imaging as pt . On reassessment she remains well appearing with reassuring vital signs and physical exam. Discharged home to outpatient followup; discharge instructions and strict return precautions were reviewed with patient who verbalized understanding. All questions were answered and she is in full agreement with the plan. Lab Data Lab results reviewed: Yes I reviewed the patient's lab results. Labs: Laboratory Tests Range/Units 07/07/23 07/07/23 07/07/23 14:10 21:08 21:15 WBC (4.4-10.8) 10^3/uL 15.26 H 13.69 H RBC (3.93-5.22) 10^6/uL 4.17 4.02 Hgb (11.2-15.7) g/dL 12.5 11.9 Hct (36.0-46.0) % 37.7 35.6 L MCV (80-95) fL 90 89 MCH (27.0-33.0) pg 30.0 29.6 MCHC (32.0-36.0) % 33.2 33.4 RDW (11.7-14.6) % 13.0 12.9 Plt Count (130-400) 10^3/uL 310 262 MPV (8.0-11.0) fL 10.8 10.0 Immature Gran % 0.7 Neutrophils % 74.4 Lymphocytes % 13.6 Monocytes % 9.1 Eosinophils % 1.8 Basophils % 0.4 Nucleated RBC % (0.0-0.3) % 0.0 Absolute Neutrophils (1.2-6.7) 10^3/uL 10.19 H Absolute Lymphocytes (1.2-3.4) 10^3/uL 1.86 Absolute Monocytes (0.1-0.8) 10^3/uL 1.25 H Absolute Eosinophils (0.0-0.7) 10^3/uL 0.25 Absolute Basophils (0.0-0.2) 10^3/uL 0.05 Sodium (136-145) mmol/L 140 140 Potassium (3.5-5.1) mmol/L 4.7 4.1 Chloride (98-107) mmol/L 103 104 Carbon Dioxide (21.0-32.0) mmol/L 25.7 25.8 Anion Gap (3-11) mmol/L 11.3 H 10.2 BUN (7-18) mg/dL 10 8 Creatinine (0.55-1.02) mg/dL 0.6 0.6 Est GFR (CKD-EPI 2020) (mL/min/1.73m2) 122.23 122.23 Glucose (74-106) mg/dL 86 97 Calcium (8.5-10.1) mg/dL 9.4 9.0 Total Bilirubin (0.2-1.0) mg/dL 0.5 AST (15-37) U/L 12 L ALT (14-59) U/L 27 Alkaline Phosphatase (46-116) U/L 65 Total Protein (6.4-8.2) g/dL 7.0 Albumin (3.4-5.0) g/dL 3.2 L Amylase (25-115) U/L 67 Lipase (16-77) U/L 52 47 Urine Color (Yellow) Yellow Urine Clarity (Clear) Turbid Urine pH (5-8) 8.5 H Ur Specific Savery (1.005-1.025) 1.020 Urine Protein (Neg-Trace) mg/dL Negative Urine Ketones (Negative) mg/dL Negative Urine Blood (Negative) Negative Urine Nitrite (Negative) Negative Urine Bilirubin (Negative) Negative Urine Urobilinogen (Up to 0.2) mg/dL 0.2 Ur Leukocyte Esterase (Negative) Negative Urine Glucose (Negative) mg/dL Negative Quality:SDOH Health Related Social Needs: No Data to Display PFSH All Active Problems (Updated 07/07/23 @ 21:59 by Melissa Greene MD) Abdominal pain affecting (Acute) Rubella non-immune status, antepartum (Acute) Rh negative status during (Acute) (Acute) Shingles (Acute) Herpes simplex type II infection (Acute) Developmental delay, mild (Acute) Aortic root enlargement (Acute) Attention deficit hyperactivity disorder (Acute) Congenital cardiomegaly (Acute 02/14/13) 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 Augustus Zurita 2 years at [facility] Pulmonary valve regurgitation, acquired (Acute) Right ventricular enlargement (Acute) Medical History (Updated 07/07/23 @ 21:59 by Melissa Greene MD) Alcohol intoxication (06/20/17) Eval at [facility]. Brought in by police secondary behavior - stated suicidal ideation. Abnormal Pap smear of cervix (11/18/16) Dec 2022: LEEP October 2022: ASCUS/HPV+ ->colp: focal fragment of CIN2 --> LEEP August 2021: nl pap/HPV+ July 2020: nl cytology July 2019: nl cytology September 2018: LSIL --> colp JOHNATHAN 1 LGSIL. 07/2017 colpo: ECC neg. 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 Followed by Dr. Dexter at [facility]. Family History Mother Bipolar disorder Depression Asthma Father Human immunodeficiency virus (HIV) positive Paternal Grandmother , age 80 Breast cancer Diabetes Heart disease Sister No problems noted. Brother No problems noted. Maternal Grandfather , age 72 Depression Heart disease Paternal Grandfather , age 78 Heart disease Maternal Grandmother No problems noted. Social History Smoking/Tobacco Use Status: Unknown Smoking risk assessment performed?: Yes Alcohol Intake: former Drug use: Never Substance use type: does not use Caregiver/Support person: No Household members: none Housing: apartment Communication Needs: None Pets and animals: No Sexually active: Yes Do you think of yourself as: straight/heterosexual Current gender identity: female What is your relationship status?: living with partner How often do you talk on the phone with friends or family?: three or more times per week How often do you get together with friends or relatives?: three or more times per week How often do you attend hoahaoism or catholic services?: 4 or more times per year Do you belong to any clubs or organized social groups?: no Panel score (0-1 are the most socially isolated patients): 3 What type of physical activity do you participate in: walking Duration: 15-30 minutes/day Frequency: 3-4 times per week Meseret/Tenriism: Religion Special meseret needs: No Seatbelt use: always Helmet use: No Drive intox or ride w/intox transport truck driver: No Do you feel safe at home: Yes Do you feel safe in your relationship?: Yes Female Reproductive History Menstrual control method: none History History 1 Para 0 Hx # Term Pregnancies 0 Multiple births 0 Hx # Pregnancies 0 Ectopic pregnancies 0 AB induced 0 Hx Number of Living Children 0 AB spontaneous 0 Discharge Plan Disposition Patient Disposition: Home Condition: Good Discharge Details Clinical Impression: Abdominal pain affecting Primary Care Provider: Domitila Dorado ED Provider: Melissa Greene Home Meds and New Rx's Prescriptions: Continued aspirin 81 mg tablet,delayed release (DR/EC) 81 mg PO PRN Qty: 60 5RF docusate sodium [Colace] 100 mg capsule 100 mg PO BID Qty: 60 3RF amoxicillin 500 mg capsule 2,000 mg PO ONCE Qty: 4 1RF Rx Instructions: Prior to dental appointment vit no.[id number] 27 mg iron- 1 mg tablet 1 tab PO DAILY Qty: 90 4RF ascorbic acid (vitamin C) 1,000 mg capsule 1 g PO BID Qty: 90 2RF magnesium hydroxide [Milk of Magnesia] 400 mg/5 mL suspension 5 ml PO DAILY PRN (Reason: stomach upset) Qty: 355 2RF Discharge Instructions Instructions: Abdominal Pain (ED) Additional Instructions: Call your primary care doctor tomorrow to schedule an appointment within 3 days to followup on your visit here. Keep your ultrasound appointment once it is made. Call your TELEPHONE SERVICE REPRESENTATIVE tomorrow to schedule a follow up appointment and to discuss your blood pressure. Return to the emergency department for new or worsening symptoms including worsening or constant pain, inability to keep down fluids, if you are not able to get an ultrasound tomorrow, or if you have any other concerns. Referrals: Domitila Dorado MD, [place] [Primary Care Provider] -
[2023-07-07 21:26] LABS: ALT 27 U/L (14-59); AST 12 U/L (15-37); Albumin 3.2 g/dL (3.4-5.0); Alkaline Phosphatase 65 U/L (46-116); Anion Gap 10.2 mmol/L (3-11); BUN 8 mg/dL (7-18); Bilirubin, Total 0.5 mg/dL (0.2-1.0); CO2 25.8 mmol/L (21.0-32.0); CREATININE 0.6 mg/dL (0.55-1.02); Chloride 104 mmol/L (98-107); Estimated GFR 122.23 (mL/min/1.73m2); Glucose 97 mg/dL (74-106); Lipase 47 U/L (16-77); Potassium 4.1 mmol/L (3.5-5.1); Sodium 140 mmol/L (136-145)
[2023-07-07] MEDS: Acetaminophen 500 MG TAB 1000 MG PO (21:49)
[2023-07-07 21:56] LABS: Bilirubin Negative (Negative); Blood Negative (Negative); Clarity Turbid (Clear); Glucose Negative (Negative); Ketones Negative (Negative); Leukocyte Esterase Negative (Negative); Nitrite Negative (Negative); Urobilinogen 0.2 mg/dL (Up to 0.2); pH 8.5 (5-8)
== END 2023-07-07 22:14 | disposition home or self-care (01) ==
PROVIDERS: Nurse Practitioner Family; Emergency Provider Student in an Organized Health Care Education/Training Program; PCP Family Medicine
DX: R10.11 Right upper quadrant pain (principal); O26.892 Other specified pregnancy related conditions, second trimester; R11.0 Nausea; I10 Essential (primary) hypertension
CPT/HCPCS: 36415; 80048; 80053; 83690; 85027; 99283; 81003; 82150; 85025

== ENCOUNTER → 2023-07-08 09:45 | Outpatient (CLI) | payer MEDICARE, MEDICAID, SELFPAY ==
--- NOTE | 2023-07-08 09:30 | DI.US_ITS ---
Exam(s) US ABDOMEN LIMITED EXAM: US ABDOMEN LIMITED CLINICAL HISTORY: RUQ pain,r10.11 TECHNIQUE: Ultrasound abdomen performed using standard protocol. COMPARISON: No exams were available for comparison FINDINGS: LIVER: Normal size. Normalechogenicity. No focal liver lesions are seen.. GALLBLADDER: No evidence of cholelithiasis. No evidence of wall thickening. No pericholecystic fluid identified. SCHMITT'S SIGN: Negative. BILIARY SYSTEM: No intrahepatic or extrahepatic biliary ductal dilation. RIGHT KIDNEY: Normal size. No evidence of renal calculi. No evidence of hydronephrosis. No suspicious renal mass. No cyst identified. PANCREAS: Normal where visualized. ABDOMINAL AORTA AND IVC: Visualized portions normal caliber. ASCITES: None seen. IMPRESSION: Normal sonographic appearance of the right upper quadrant. DATA REPOSITORY:
== END ==
PROVIDERS: PCP Family Medicine; Visit Provider Nurse Practitioner Family
DX: R10.11 Right upper quadrant pain (principal)
CPT/HCPCS: 76705

== ENCOUNTER 2023-07-31 15:03 | Outpatient (REF) | payer MEDICARE, MEDICAID, SELFPAY | END 2023-07-31 15:04 | disposition home or self-care (01) | LOC: LBN 15:03 | PROVIDERS: PCP Family Medicine; Visit Provider Obstetrics & Gynecology | DX: N94.89 Other specified conditions associated with female genital organs and menstrual cycle (principal); B37.31 Acute candidiasis of vulva and vagina | CPT/HCPCS: 87480; 87510; 87660 ==

== ENCOUNTER 2023-08-28 01:45 | Outpatient (CLI) | payer MEDICARE, MEDICAID, SELFPAY ==
[2023-08-28 11:04] LABS: Abs Immature Grans 0.08 10^3/uL (0.0-0.06); Absolute Basophil Count 0.05 10^3/uL (0.0-0.2); Absolute Eosinophil Count 0.14 10^3/uL (0.0-0.7); Absolute Lymphocyte Count 1.35 10^3/uL (1.2-3.4); Absolute Monocyte Count 1.06 10^3/uL (0.1-0.8); Absolute Neutrophil Count 9.02 10^3/uL (1.2-6.7); Basophils % 0.4; Eosinophils % 1.2; HCT 37.8 % (36.0-46.0); HGB 12.2 g/dL (11.2-15.7); Immature Grans % 0.7; Lymphocytes % 11.5; MCH 29.4 pg (27.0-33.0); MCHC 32.3 % (32.0-36.0); MCV 91 fL (80-95); MPV 9.7 fL (8.0-11.0); Monocytes % 9.1; Neutrophils % 77.1; Platelet Count 252 10^3/uL (130-400); RBC 4.15 10^6/uL (3.93-5.22); RDW 12.8 % (11.7-14.6); RDW-SD 42.4 fL
[2023-08-28 11:17] LABS: Glucose,1 Hr (Glucola) 101 mg/dL (80-140)
== END 2023-08-28 01:46 | disposition home or self-care (01) ==
LOC: LBO 01:46
PROVIDERS: PCP Family Medicine; Visit Provider Obstetrics & Gynecology
DX: Z34.93 Encounter for supervision of normal pregnancy, unspecified, third trimester (principal)
CPT/HCPCS: 36415; 82950; 85025

== ENCOUNTER 2023-09-10 04:50 | Outpatient (CLI) | payer MEDICARE, MEDICAID, SELFPAY | END 2023-09-10 04:51 | disposition home or self-care (01) | LOC: LBO 04:50 | PROVIDERS: PCP Family Medicine; Visit Provider Obstetrics & Gynecology | DX: O26.892 Other specified pregnancy related conditions, second trimester (principal); Z67.91 Unspecified blood type, Rh negative | CPT/HCPCS: 36415; 86850; 86900; 86901; 90384 ==

== ENCOUNTER 2023-10-20 11:17 | Outpatient (CLI) | payer MEDICARE, MEDICAID, SELFPAY ==
[2023-10-20 11:45] VITALS: BP 119/66; PULSE 70
[2023-10-20 11:45] LABS: Abs Immature Grans 0.14 10^3/uL (0.0-0.06); Absolute Eosinophil Count 0.11 10^3/uL (0.0-0.7); Absolute Lymphocyte Count 1.58 10^3/uL (1.2-3.4); Absolute Monocyte Count 1.27 10^3/uL (0.1-0.8); Absolute Neutrophil Count 10.08 10^3/uL (1.2-6.7); Basophils % 0.5 %; Eosinophils % 0.8 %; HCT 38.9 % (36.0-46.0); Immature Grans % 1.1 %; Lymphocytes % 11.9 %; MCH 29.5 pg (27.0-33.0); MCHC 33.4 % (32.0-36.0); MCV 88 fL (80-95); MPV 10.1 fL (8.0-11.0); Monocytes % 9.6 %; Neutrophils % 76.1 %; Platelet Count 249 10^3/uL (130-400); RDW-SD 42.4 fL; WBC 13.24 10^3/uL (4.4-10.8)
[2023-10-20 11:46] LABS: Absolute Basophil Count 0.07 10^3/uL (0.0-0.2)
[2023-10-20 11:47] VITALS: BP 116/66; PULSE 70; RESP 16; TEMP 36.5
[2023-10-20 12:06] LABS: COMMENT (LAB VIEW ONLY) 15.88 mg/dL; PROTEIN < 6.0 mg/dL
[2023-10-20 12:11] LABS: ALT 23 U/L (14-59); AST 15 U/L (15-37); Albumin 2.9 g/dL (3.4-5.0); Alkaline Phosphatase 144 U/L (46-116); Anion Gap 11.4 mmol/L (3-11); BUN 8 mg/dL (7-18); Bilirubin, Total 0.7 mg/dL (0.2-1.0); CO2 21.6 mmol/L (21.0-32.0); CREATININE 0.5 mg/dL (0.55-1.02); Calcium 8.9 mg/dL (8.5-10.1); Chloride 102 mmol/L (98-107); Estimated GFR 127.72 (mL/min/1.73m2); Glucose 73 mg/dL (74-106); Potassium 4.5 mmol/L (3.5-5.1); Sodium 135 mmol/L (136-145); Total Protein 6.8 g/dL (6.4-8.2)
--- NOTE | 2023-10-20 14:52 | W.OBNST ---
Date of service: 10/20/23 Time of Service: 14:52 NST Evaluation Reason for NST Reasons for Nonstress Test: GESTATIONAL HYPERTENSION Gestational Age Gestational Age in Weeks and Days: 35 Weeks and 0Days Test and Monitor Explained Test/Monitor Explained: Test Explained NST Information Date on Monitor: 10/20/23 Time on Monitor: 11:33 Date off Monitor: 10/20/23 Time off Monitor: 11:55 Total Time on Monitor: 22 NST Interventions: None NST Evaluation Patient States Movement: Present FHR Baseline: 120 Variability: Moderate 6-25 bpm Accelerations: 15x15 NST Results: Reactive Note Ultrasound Done: N/A. NST Note Note: Nonstress test today due to elevated blood pressure in the office. Normal CBC and CMP. Category 1, reactive nonstress test. Follow-up as scheduled. NST Reviewed and Verified by: Marcie Gallardo
== END 2023-10-20 12:42 | disposition home or self-care (01) ==
LOC: BCD 11:18 → OBS 11:22
PROVIDERS: PCP Family Medicine; Visit Provider Obstetrics & Gynecology
DX: O13.3 Gestational [pregnancy-induced] hypertension without significant proteinuria, third trimester (principal); Z3A.35 35 weeks gestation of pregnancy
CPT/HCPCS: 59025; 36415; 80053; 82565; 84156; 85025

== ENCOUNTER 2023-10-21 11:08 | Outpatient (CLI) | payer MEDICARE, MEDICAID, SELFPAY ==
[2023-10-21 11:37] VITALS: BP 124/71; PULSE 99
--- NOTE | 2023-10-21 11:46 | HPE_ITS ---
Date of service: 10/21/23 Time of Service: 11:47 Assessment and Plan Assessment and plan (1) premature rupture of membranes (PPROM) with unknown onset of labor: Status: Acute Assessment and plan: Pt is grossly ruptured at 34wks GA and just starting to have some contractions. Vertex confirmed. History is significant for: - Tetrology of fallot with repair - Recent onset of elevated BPs with normal labs done yesterday - Hx HSV - Hx LEEP in Dec 2022 Plan - [place] [facility] [place]. Mercado and team aware - Betamethasone 12mg @ 11:50am - Penicillin 5,000,000 U IV x1 - Valtrex 500mg PO x1 - Nifedipine 20mg PO x1 (because pt was feeling more uncomfortable) - Per Dr. Mercado will not start mag yet and wait on GBS culture collection. OB-HPI Labor/Delivery History of Present Illness Reason for Visit: NST Chief Complaint: Suspected Rupture of Membranes , Associated Signs and Symptoms of Suspected ROM: grossly ruptured. RAFY Calculator Estimated Delivery Date Method Current WG Current Estimate 12/01/23 LMP (Certain) 34w 1d Other Estimates 12/02/23 Ultrasound #1 34w 0d Comments: Pt reports that she started leaking around 7:30 this am. She called [facility] and was told to present to the center. She said on her way her she felt some tightening but nothing prior to that. No bleeding. Feeling movement. History of Present Expected Delivery Route/Plan - FOB/partner - Rojas Le (age 41, first child) Rubella non immune BG Specific Issues/Plan 1. Hx tetrology of fallot surgically repaired at 3mo. - MFM consult and anatomy sono: normal anatomy - Follow with Cardiology, echo - Growth sono at 32wks - Plans [facility] [place] delivery at 39wks 2. Recent h/o LEEP in Dec 2022 - Cervical length measurement at 20wks - Repeat pap with initial exam: negative (+yeast) 3. Developmental delay 4. HSV2/shingles - HSV ppx at 36wks. 5. Genetic testing: pt desires cfDNA-low risk, declines CF/SMA screen 6. Rh negative, RhoGam @ 28 wks 09/10/2023 7. Rubella non-immune- discuss with Jemima, offer vaccine post partum____ 8. +THC use 9. Elevated BP @34wks (10/20/23): normal labs, Urine PCR unable to calculate. 10. PPROM - grossly ruptured - transfer [place] [facility] [place]. Review of Systems Constitutional Constitutional: Reports system reviewed and no additional complaints, except as documented Gastrointestinal Gastrointestinal: Denies nausea and Denies vomiting Genitourinary Genitourinary: Reports system reviewed and no additional complaints, except as documented Musculoskeletal Comments: No regular contractions PFSH All Active Problems (Updated 10/21/23 @ 11:56 by Nneka Perez MD) premature rupture of membranes (PPROM) with unknown onset of labor (Acute) Leg swelling (Acute) Rubella non-immune status, antepartum (Acute) Rh negative status during (Acute) (Acute) Right ventricular enlargement (Acute) Pulmonary valve regurgitation, acquired (Acute) Congenital cardiomegaly (Acute 02/14/13) 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 Augustus Zurita 2 years at [facility] [place] Attention deficit hyperactivity disorder (Acute) Aortic root enlargement (Acute) Developmental delay, mild (Acute) Herpes simplex type II infection (Acute) Shingles (Acute) Medical History (Updated 10/21/23 @ 11:56 by Nneka Perez MD) Alcohol intoxication (06/20/17) Eval at [facility]. Brought in by police secondary behavior - stated suicidal ideation. Abnormal Pap smear of cervix (11/18/16) Dec 2022: LEEP October 2022: ASCUS/HPV+ ->colp: focal fragment of CIN2 --> LEEP August 2021: nl pap/HPV+ July 2020: nl cytology July 2019: nl cytology September 2018: LSIL --> colp JOHNATHAN 1 LGSIL. 07/2017 colpo: ECC neg. 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 [place]. Dexter [place] [facility] [place]. Family History Mother Bipolar disorder Depression Asthma Father Human immunodeficiency virus (HIV) positive Paternal Grandmother , age 80 Breast cancer Diabetes Heart disease Sister No problems noted. Brother No problems noted. Maternal Grandfather , age 72 Depression Heart disease Paternal Grandfather , age 78 Heart disease Maternal Grandmother No problems noted. Social History Smoking/Tobacco Use Status: Unknown Smoking risk assessment performed?: Yes Alcohol Intake: former Drug use: Never Substance use type: does not use Caregiver/Support person: No Household members: none Housing: apartment Communication Needs: None Pets and animals: No Sexually active: Yes Do you think of yourself as: straight/heterosexual Current gender identity: female What is your relationship status?: living with partner How often do you talk on the phone with friends or family?: three or more times per week How often do you get together with friends or relatives?: three or more times per week How often do you attend restorationist or mandaen services?: 4 or more times per year Do you belong to any clubs or organized social groups?: no Panel score (0-1 are the most socially isolated patients): 3 What type of physical activity do you participate in: walking Duration: 15-30 minutes/day Frequency: 3-4 times per week Meseret/Restoration: Pentecostalism Special meseret needs: No Seatbelt use: always Helmet use: No Drive intox or ride w/intox equipment driver: No Do you feel safe at home: Yes Do you feel safe in your relationship?: Yes Female Reproductive History Menstrual control method: none History History 1 Para 0 Hx # Term Pregnancies 0 Multiple births 0 Hx # Pregnancies 0 Ectopic pregnancies 0 AB induced 0 Hx Number of Living Children 0 AB spontaneous 0 Meds Allergies and Home Medications Allergies Allergy/AdvReac Type Severity Reaction Status Date / Time No Known Allergies Allergy Verified 10/20/23 10:52 Home Medications Medication Instructions Recorded Confirmed Type vitamin no.180-ferrous 1 tab PO DAILY #90 tabs 05/22/23 10/06/23 Rx fumarate 27 mg-folic acid 1 mg tablet ascorbic acid (vitamin C) 1,000 mg 1 g PO BID #90 caps 05/28/23 10/06/23 Rx capsule aspirin 81 mg tablet,delayed 81 mg PO PRN pain #60 tabs 06/01/23 10/06/23 Rx release docusate sodium 100 mg capsule 100 mg PO BID #60 caps 06/01/23 10/06/23 Rx (Colace) amoxicillin 500 mg capsule 2,000 mg (4 x 500 mg) PO ONCE #4 07/27/23 10/06/23 Rx caps Exam Physical Exam Vital signs: Pulse BP 99 H 124/71 10/21/23 11:37 10/21/23 11:37 Vital Signs Reviewed: Yes Notable Details: First BP mildly elevated Narrative: Grossly ruptured on arrival. Detailed Labor and Delivery Exam Effacement (%): 85 station: -2 Cervantes Score: Cervical Points Exam 0 1 2 3 Dilation Closed 1-2cm 3-4 cm 5-6cm Effacement 0-30% 40-50% 60-70% 80% Consistency Firm Medium Soft Station -3 -2 -1,0 +1,+2 Position Posterior Mid Anterior Amniotic Membrane Status: Ruptured Rupture Method: Spontaneous Amniotic Fluid: Clear Comments: Cx:ft Grossly ruptured Fetus A Heart Rate Baseline: 135 Monitor Accelerations: 15 X 15 Monitor Decelerations: None Variability: Moderate (6-25 BPM) Presentation: Vertex (confirmed on bedside sono) Date of Membrane Rupture: 10/21/23 Time of Membrane Rupture: 07:30 Detailed HEENT Exam Head: Present normocephalic and atraumatic Detailed Abdominal Exam Comments: gravid, nontender Detailed Neurological Exam Neurological: Present alert, oriented X3 and CN II-XII intact DetailedPsychiatric Exam Psychiatric: Present normal affect, normal thought process and cooperative Results Results Blood Type: A- Rubella Status: Nonimmune Varicella Immunity: Immune Risk Assessment Risk for Shoulder Dystocia Historical/Initial OB: NEGATIVE FOR: Pelvic Abnormality, Pre- BMI>30, Previous Shoulder Dystocia or Previous Macrosomia Risk for Pre-Eclampsia Yes, if one or more: NEGATIVE FOR: Hx Pre-E/Gest HTN, Chronic HTN, Multiple Gestation, Pre-gestational DM, Renal Disease, Systemic Lupus or APA Syndrome Yes, if 2 or more: POSITIVE FOR: Nulliparity; NEGATIVE FOR: Age>= 35 yrs, >10yr btwn pregnancies, BMI>30, ethinicty, Mother/Sister w/ Pre-E or Previous IUGR Risk for Post- Hemorrhage Initial: NEGATIVE FOR: Multiple Gestation, Previous PPH, Known Clotting Deficiency, Grand Multiparity or Anticoagulation Risks Reviewed Risks Reviewed Upon Admission: Yes
[2023-10-21 11:50] LABS: ROM Plus Positive
[2023-10-21] MEDS: Penicillin G POT. 5,000,000 UNITS in Normal Saline 100 ML 200 UNITS IVPB (11:50)
[2023-10-21] MEDS: Betamet Acet/Betamet Na Ph Inj. 30 MG/5 ML 12 MG IM (11:50)
[2023-10-21] MEDS: valACYclovir 500 MG TAB PO (12:03)
[2023-10-21] MEDS: NIFEdipine 10 MG CAP 20 MG PO (12:15)
[2023-10-21 15:45] VITALS: BP 124/71; PULSE 99; TEMP 36.7
[2023-10-27 15:21] VITALS: BP 124/71; PULSE 99; TEMP 36.7
--- NOTE | 2023-10-27 15:21 | W.OBNST ---
Date of service: 10/21/23 Time of Service: 12:00 NST Evaluation Reason for NST Reasons for Nonstress Test: LABOR Gestational Age Gestational Age in Weeks and Days: 34 Weeks and 1Days Test and Monitor Explained Test/Monitor Explained: Test Explained, Monitor Explained and Patient Verbalized Understanding Vital Signs Blood Pressure: 124/71 Pulse: 99 Temperature: 98.1 F Urine Results Urine Protein: Negative Urine Ketones: Negative Urine Glucose: Negative Urine Blood: Negative NST Information Date on Monitor: 10/21/23 Time on Monitor: 11:08 Date off Monitor: 10/21/23 Time off Monitor: 11:56 Total Time on Monitor: 48 NST Interventions: Notify Provider and Other Contraction Frequency: Q7-10 NST Evaluation Patient States Movement: Present FHR Baseline: 140 Variability: Moderate 6-25 bpm Accelerations: 15x15 Decelerations: None NST Results: Reactive Note Ultrasound Done: Presentation Presentation Results: Vtx Coding for Presentation w/NST: Completed Exam. NST Note NST Reviewed and Verified by: Nneka Perez
== END 2023-10-21 12:30 | disposition home or self-care (01) ==
LOC: BCD 11:09 → OBS 11:14
PROVIDERS: PCP Family Medicine; Visit Provider Obstetrics & Gynecology
DX: O42.913 Preterm premature rupture of membranes, unspecified as to length of time between rupture and onset of labor, third trimester (principal); Z3A.34 34 weeks gestation of pregnancy
CPT/HCPCS: 84112; 59025; 87081; J0702; J2540; J3490

== ENCOUNTER 2023-12-16 15:55 | Outpatient (REF) | payer MEDICARE, MEDICAID, SELFPAY ==
--- NOTE | 2023-12-16 15:25 | PAPFT_PTH ---
PATIENT: Olena Perry LOC: [facility] U#:[id number] AGE/SX: 33/F ROOM: RE12/16/[address]: Nneka Perez MD : 1990 BED: DIS: 12/16/2023 SPEC #: [id number] RECD: 12/16/23 17:45 STATUS: [place] REQ #: [id number] FIDE: 12/16/23 15:[address]: Nneka Perez DEPT: [facility] Cytology RECD BY: Kavya Ramirez ENTERED: 12/16/23 17:46 SP TYPE: PAPFT OTHR DR: Domitila Dorado MD, DC Tissues: 1 - CX/ENDOCX FOR PAP SMEARS Procedures: PAP THIN PREP/UVM Screening HPV DNA PROBE Comments: [id number] (HPV 16 & 18/45)
== END 2023-12-16 15:56 | disposition home or self-care (01) ==
LOC: LBN 15:55
PROVIDERS: PCP Family Medicine; Visit Provider Obstetrics & Gynecology
DX: Z39.2 Encounter for routine postpartum follow-up; R87.619 Unspecified abnormal cytological findings in specimens from cervix uteri
CPT/HCPCS: 88142; 87624

== ENCOUNTER 2024-05-24 12:06 | Outpatient (REF) | payer MEDICARE, MEDICAID, SELFPAY ==
[2024-05-25 11:47] LABS: Chlamydia Result Negative (Negative); GC Result Negative (Negative)
== END 2024-05-24 12:07 | disposition home or self-care (01) ==
LOC: LBN 12:06
PROVIDERS: PCP Nurse Practitioner Family; Visit Provider Obstetrics & Gynecology
DX: Z70.8 Other sex counseling (principal); Z11.3 Encounter for screening for infections with a predominantly sexual mode of transmission
CPT/HCPCS: 87491; 87591

== ENCOUNTER 2024-11-07 13:36 | Outpatient (REF) | payer MEDICARE, MEDICAID, SELFPAY ==
[2024-11-08 15:08] LABS: Chlamydia Result Negative (Negative); GC Result Negative (Negative)
== END 2024-11-07 13:37 | disposition home or self-care (01) ==
LOC: LBN 13:36
PROVIDERS: PCP Nurse Practitioner Family; Visit Provider Nurse Practitioner Women's Health
DX: Z11.3 Encounter for screening for infections with a predominantly sexual mode of transmission (principal); N76.0 Acute vaginitis
CPT/HCPCS: 87491; 87591; 87480; 87510; 87660

== ENCOUNTER 2024-12-20 17:46 | Outpatient (REF) | payer MEDICARE, MEDICAID, SELFPAY ==
--- NOTE | 2024-12-20 16:00 | PAPFT_PTH ---
PATIENT: Olena Perry LOC: [facility] U#:[id number] AGE/SX: 34/F ROOM: RE12/20/[address]: Nneka Perez MD : 1990 BED: DIS: 12/20/2024 SPEC #: [id number] RECD: 12/20/24 18:03 STATUS: [place] REQ #: [id number] FIDE: 12/20/24 16:[address]: Nneka Perez DEPT: [facility] Cytology RECD BY: Kavya Ramirez ENTERED: 12/20/24 18:03 SP TYPE: PAPFT OTHR DR: Too Pagan DNP Tissues: 1 - CX/ENDOCX FOR PAP SMEARS Procedures: PAP THIN PREP/UVM Screening HPV DNA PROBE Comments: [id number] (HPV 16 & 18/45)
== END 2024-12-20 17:47 | disposition home or self-care (01) ==
LOC: LBN 17:46
PROVIDERS: PCP Nurse Practitioner Family; Visit Provider Obstetrics & Gynecology
DX: Z12.4 Encounter for screening for malignant neoplasm of cervix (principal)
CPT/HCPCS: 88142; 87624

== ENCOUNTER 2025-01-04 19:31 | Emergency (ER) | payer MEDICARE, MEDICAID, SELFPAY ==
[2025-01-04 19:39] VITALS: BP 124/73; PULSE 62; RESP 16; TEMP 37.2; O2SAT 95
--- NOTE | 2025-01-04 19:45 | DI.RAD_ITS ---
Exam(s) XR FOOT LT COMPLETE XR ANKLE LT COMPLETE EXAM: XR ANKLE LT COMPLETE CLINICAL HISTORY: generalized ankle pain after twisting injury TECHNIQUE: 2D digital imaging was performed. Three views of the ankle and foot. COMPARISON: CR,XR XR FOOT LT COMPLETE from 01/04/2025 FINDINGS: BONES: No acute fracture is present. No bony destructive lesion is seen. Bipartite medial and lateral sesamoids. JOINTS:The ankle mortise is normally aligned. SOFT TISSUE: Swelling around the lateral malleolus. IMPRESSION: Unremarkable radiographs of the left ankle and foot. The preliminary [facility] report was reviewed. DATA REPOSITORY: RADIATION DOSE DELIVERED:
--- NOTE | 2025-01-04 19:47 | ED.GENADUL_ITS ---
Discharge Plan Disposition Patient Disposition: Home Discharge Details Clinical Impression: Ankle sprain Primary Care Provider: Too Burk ED Provider: Pam Weston Home Meds and New Rx's Prescriptions: No Action docusate sodium [Colace] 100 mg capsule 100 mg PO BID Qty: 60 3RF Nexplanon 68 mg implant 1 implant subdermal ONCE Rx Instructions: as a single dose ibuprofen 800 mg tablet 800 mg PO BID MDD 2 PRN (Reason: pain) Qty: 180 1RF acyclovir 800 mg tablet 800 mg PO BID 5 Days Qty: 10 1RF polyethylene glycol 3350 [Miralax] 17 gram/dose powder 17 g PO DAILY acetaminophen 325 mg capsule 325 mg PO ONCE PRN amoxicillin 500 mg capsule 2,000 mg PO ONCE Qty: 4 1RF Rx Instructions: Prior to dental appointment Discharge Instructions Instructions: Ankle Sprain ED Additional Instructions: Please call your primary care provider to set up a follow-up appointment for reassessment. If you continue to have foot pain, a referral to podiatry may be indicated I recommend that you use the ankle stabilizer brace for the next couple of weeks to help support your ankle. Weight-bear as tolerated. I recommend that you wear well supportive shoes, hard soled shoes may most comfortable. Use Tylenol, ibuprofen, and ice for discomfort. Elevate your foot above heart level to help with swelling. Referrals: Too Burk, DRESS OPERATOR [Primary Care Provider, Medicine] Discharge Data Discharge Date/Time-TO BE ENTERED AT DEPARTURE: 01/04/25 21:55 HPI General Date/Time Provider Initiated Documentation: 01/04/25 19:40 . HPI Narrative: Olena is a 34-year-old female who presents to the emergency department today for evaluation of left ankle pain. Injury occurred earlier today; she reports she slipped on truck step and fell, twisting her left ankle. No other injuries, did not fall to the ground, denies head injury or other injury. She is able to bear weight, but says it is painful when walking. With elevation she says that pain goes from her great toe down to her ankle, but denies pain to her foot otherwise. Ice and elevation applied, but elevation exacerbates pain. Minor scrape on elbow. She has sustained a fracture to her left great toe after dropping something on it previously PAST SURGICAL HISTORY: - Open heart surgery (twice) for treatment of congenital heart disease Related Data Home Medications ?Medication ?Instructions ?Recorded ?Confirmed docusate sodium 100 mg capsule 100 mg PO BID #60 caps 06/01/23 01/04/25 (Colace) etonogestrel 68 mg subdermal 1 implant subdermal ONCE 11/13/23 01/04/25 implant (Nexplanon) ibuprofen 800 mg tablet 800 mg PO BID PRN pain #180 04/15/24 01/04/25 tab-caps acyclovir 800 mg tablet 800 mg PO BID 5 days #10 tab s 07/07/24 01/04/25 acetaminophen 325 mg capsule 325 mg PO ONCE PRN 01/04/25 polyethylene glycol 3350 17 17 g PO DAILY 09/09/24 gram/dose oral powder (Miralax) amoxicillin 500 mg capsule 2,000 mg (4 x 500 mg) PO ON CE #4 12/23/24 01/04/25 caps Previous Rx's ?Medication ?Instructions ?Recorded docusate sodium 100 mg capsule 100 mg PO BID #60 caps 06/01/23 (Colace) ibuprofen 800 mg tablet 800 mg PO BID PRN pain #180 04/15/24 tab-caps acyclovir 800 mg tablet 800 mg PO BID 5 days #10 tab s 07/07/24 amoxicillin 500 mg capsule 2,000 mg (4 x 500 mg) PO ON CE #4 12/23/24 caps Allergies Allergy/AdvReac Type Severity Reaction Status Date / Time No Known Allergies Allergy Verified 01/04/25 19:47 General Stated Complaint: Orthopedic BULMARO: 4 Exam Narrative Exam Narrative: General Appearance: Normal. Patient is alert and oriented, no acute Vital signs: Within normal limits. Back, Musculoskeletal: Mild swelling and tenderness on the lateral side of the left ankle. Full flexion and dorsiflexion. +CMS to toes. No obvious ecchymosis or skin tears/abrasions. Full painless range of motion to knee, no pain with palpation of tibia/fibula. Skin: Small scrape on elbow. Psychiatric: Normal. Course Vital Signs Vital signs: Vital Signs Temperature 37.2 C 01/04/25 19:39 Pulse 62 01/04/25 19:39 Respiratory Rate 16 01/04/25 19:39 Blood Pressure 124/73 01/04/25 19:39 Pulse Oximetry 95 01/04/25 19:39 Temperature 37.2 C 01/04/25 19:39 Temperature Source Temporal Artery Scan 01/04/25 19:39 Pulse 62 01/04/25 19:39 Respiratory Rate 16 01/04/25 19:39 Blood Pressure 124/73 01/04/25 19:39 Pulse Oximetry 95 01/04/25 19:39 Medical Decision Making Initial Assessment: Left ankle exhibits mild swelling and tenderness on the lateral side. Differential Diagnosis includes but is not limited to: Fracture, sprain, contusion, other soft tissue injury. No red flags concerning for neurovascular compromise. No overlying skin tears/abrasions to injury. ED Course: - Ordered x-ray of left ankle and foot No obvious fractures noted on foot or ankle x-ray, there is an oblique anterior posterior lucency through the medial hallux sesamoid bone, I did discuss this with patient. She reports that she has had some tenderness over the distal first metatarsal for a number of months now, says that this is not new. No acute ankle fractures noted. While in the emergency department was received a lace up ankle stabilizer splint. Clinical Impression: - Ankle sprain Disposition: - Discharge: Home. Reviewed discharge instructions with patient, including importance of follow-up with PCP, use of splint, symptomatic management, and red flags indicate need for return to emergency care. She voices agreement with plan of care. Return if increased pain, swelling, or inability to bear weight. Follow-Up: - Follow up with PCP or public relations specialist if symptoms persist or worsen. Patient Education: - Apply ice, elevate ankle, monitor for increased pain or swelling. Patient consented to the use of SHE Imaging Data Radiologic Study: Radiologist's impression: PROCEDURE INFORMATION: Exam: XR Left Foot Exam date and time: 01/04/2025 8:22 PM Age: 34 years old Clinical indication: Other: Pain from great toe down metatarsal TECHNIQUE: Imaging protocol: Radiologic exam of the left foot. Views: 3 or more views. COMPARISON: No relevant prior studies available. FINDINGS: Bones/joints: There is a well corticated transverse lucency through the lateral hallux sesamoid bone suggesting a bipartite sesamoid bone. There is an obliquely anteroposterior lucency through the medial hallux sesamoid bone. It is uncertain if this represents an acute sesamoid fracture or an unusual bipartite sesamoid variant. Clinical correlation for point tenderness in this location is recommended. If additional imaging is required, MRI could be performed for definitive evaluation. Otherwise, no acute fracture or dislocation is seen in the left foot. Soft tissues: No gross soft tissue swelling is seen in the foot. IMPRESSION: 1. Bipartite lateral hallux sesamoid bone. 2. Oblique anteroposterior lucency through the medial hallux sesamoid bone. It is uncertain if this represents an acute sesamoid fracture or an unusual bipartite sesamoid variant. Clinical correlation for point tenderness in this location is recommended. If additional imaging is required, MRI could be performed for definitive evaluation. 3. Otherwise, no acute fracture seen in the left foot. PFSH All Active Problems (Updated 01/04/25 @ 21:50 by Pam Noyola) Ankle sprain (Acute) Grief (Chronic) Pt's partner Rojas had fatal [place] Jan 2024. Shingles (Acute) Herpes simplex type II infection (Acute) Developmental delay, mild (Acute) Aortic root enlargement (Acute) Attention deficit hyperactivity disorder (Acute) Congenital cardiomegaly (Acute 02/14/13) 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 Sees Ruth Zurita 2 years at [facility] [place] Pulmonary valve regurgitation, acquired (Acute) Right ventricular enlargement (Acute) Medical History (Updated 01/04/25 @ 21:50 by Pam Noyola) Bilateral impacted cerumen Congenital heart disease Deficiency of pulmonary valve cusp Microcephaly Short stature Tetralogy of Fallot Leg swelling Alcohol intoxication (06/20/17) Eval at [facility]. Brought in by police secondary behavior - stated suicidal ideation. Abnormal Pap smear of cervix (11/18/16) November 2023: normal/negative Dec 2022: LEEP October 2022: ASCUS/HPV+ ->colp: focal fragment of CIN2 --> LEEP August 2021: nl pap/HPV+ July 2020: nl cytology July 2019: nl cytology September 2018: LSIL --> colp JOHNATHAN 1 LGSIL. 07/2017 colpo: ECC neg. 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 Repair at 3mo. Followed by Dr. Dexter at [facility] [place]. Family History Mother Bipolar disorder Depression Asthma Father Human immunodeficiency virus (HIV) positive Paternal Grandmother , age 80 Breast cancer Diabetes Heart disease Sister No problems noted. Brother No problems noted. Maternal Grandfather , age 72 Depression Heart disease Paternal Grandfather , age 78 Heart disease Maternal Grandmother No problems noted. Social History Smoking/Tobacco Use Status: Unknown Smoking risk assessment performed?: Yes Alcohol Intake: former Drug use: Daily Substance use type: marijuana Caregiver/Support person: No Household members: none Housing: apartment Communication Needs: None Pets and animals: No Sexually active: Yes Do you think of yourself as: straight/heterosexual Current gender identity: female What is your relationship status?: living with partner How often do you talk on the phone with friends or family?: three or more times per week How often do you get together with friends or relatives?: three or more times per week How often do you attend roman catholic or amish services?: 4 or more times per year Do you belong to any clubs or organized social groups?: no Panel score (0-1 are the most socially isolated patients): 3 What type of physical activity do you participate in: walking Duration: 15-30 minutes/day Frequency: 3-4 times per week Meseret/Scientology: Jainism Special meseret needs: No Seatbelt use: always Helmet use: No Drive intox or ride w/intox frontload driver: No Do you feel safe at home: Yes Do you feel safe in your relationship?: Yes Female Reproductive History Menstrual control method: implanted History History 1 Para 1 Hx # Term Pregnancies 1 Multiple births 0 Hx # Pregnancies 0 Ectopic pregnancies 0 AB induced 0 Hx Number of Living Children 1 AB spontaneous 0 Past Pregnancies Del. Date GA/Weeks # Preg Succ Route Wgt Sex Labor Lgth Anesth esia Location [facility] 10/22/23 34 No Yes vaginal 2290.641 g Female [facility] Delivery Date: 10/22/23 Last Updated by: Miriam Turkmen, EMERGENCY MEDICAL SERVICE MANAGER premature rupture membranes
--- NOTE | 2025-01-04 20:53 | DI.[facility]AD_ITS ---
PROCEDURE INFORMATION: Exam: XR Left Ankle Exam date and time: 01/04/2025 8:25 PM Age: 34 years old Clinical indication: Other: Generalized ankle pain after twisting injury TECHNIQUE: Imaging protocol: Radiologic exam of the left ankle. Views: 3 or more views. COMPARISON: CR XR FOOT LT COMPLETE 01/04/2025 8:22 PM FINDINGS: Bones/joints: Three views of the left ankle reveal no acute fracture or dislocation. Soft tissues: There is soft tissue swelling over the lateral malleolus. IMPRESSION: No acute fracture or dislocation seen at the left ankle. Dictated and Authenticated by: Abdirizak Diaz MD. Orderin Nathan Orozco MD
--- NOTE | 2025-01-04 20:58 | DI.VRAD_ITS ---
PROCEDURE INFORMATION: Exam: XR Left Foot Exam date and time: 01/04/2025 8:22 PM Age: 34 years old Clinical indication: Other: Pain from great toe down metatarsal TECHNIQUE: Imaging protocol: Radiologic exam of the left foot. Views: 3 or more views. COMPARISON: No relevant prior studies available. FINDINGS: Bones/joints: There is a well corticated transverse lucency through the lateral hallux sesamoid bone suggesting a bipartite sesamoid bone. There is an obliquely anteroposterior lucency through the medial hallux sesamoid bone. It is uncertain if this represents an acute sesamoid fracture or an unusual bipartite sesamoid variant. Clinical correlation for point tenderness in this location is recommended. If additional imaging is required, MRI could be performed for definitive evaluation. Otherwise, no acute fracture or dislocation is seen in the left foot. Soft tissues: No gross soft tissue swelling is seen in the foot. IMPRESSION: 1. Bipartite lateral hallux sesamoid bone. 2. Oblique anteroposterior lucency through the medial hallux sesamoid bone. It is uncertain if this represents an acute sesamoid fracture or an unusual bipartite sesamoid variant. Clinical correlation for point tenderness in this location is recommended. If additional imaging is required, MRI could be performed for definitive evaluation. 3. Otherwise, no acute fracture seen in the left foot. Dictated and Authenticated by: Abdirizak Diaz MD. Orderin Nathan Orozco MD
[2025-01-04 21:55] VITALS: PULSE 60; RESP 18; O2SAT 97
--- NOTE | 2025-01-07 12:47 | NUR.NOTE ---
Access chart to print the demographic sheet for [facility] billing requisition. Nursing Note:
--- NOTE | 2025-01-24 06:38 | NUR.NOTE ---
Accessed Pt chart to print the patients visit notes for [facility]
== END 2025-01-04 21:55 | disposition home or self-care (01) ==
PROVIDERS: Emergency Provider Nurse Practitioner Family; PCP Nurse Practitioner Family
DX: S93.402A Sprain of unspecified ligament of left ankle, initial encounter (principal); W17.89XA Other fall from one level to another, initial encounter
CPT/HCPCS: 99284; 99283; 81025; 73610; 73630

== ENCOUNTER 2025-02-27 13:40 | Outpatient (REF) | payer MEDICARE, MEDICAID, SELFPAY | END 2025-02-27 13:41 | disposition home or self-care (01) | LOC: LBN 13:40 | PROVIDERS: PCP Nurse Practitioner Family; Visit Provider Nurse Practitioner Women's Health | DX: N76.0 Acute vaginitis (principal) | CPT/HCPCS: 87480; 87510; 87660 ==